=== PATIENT | female | born 1955 | race Caucasian/White ===

== ENCOUNTER → 2019-08-19 | Day surgery (SDC) | payer BC, MEDICARE ==
[~2019-08-19] MED LIST: ASPIRIN E.C. 8181 MG PO; BRILINTA90 MG PO; BROVANA15 MCG/2 M IH; CALTRATE-600 W600 MG PO; CLARITIN 1010 MG/TAB PO; COZAAR 25MG25 MG/TAB PO; DOXYCYCLINE 10100 MG PO; FOSAMAX 70MG TA70 MG PO; IMDUR 30MG30 MG/TAB PO; IPRATROPIUM BROM3 M1 IH; LEVOXYL0.125 MG PO; LIPITOR 40MG TA40 MG PO; LIPITOR20 MG PO; PREDNISONE20 MG PO; PROAIR HFA0.09 MG/AC IH; RT ADVAIR 228 DISKUS IH; RT SPIRIVA18 MCG IH; ZEBETA 5MG5 MG PO
== END ==
LOC: COL.CAR 09:29
DX: Z53.8 Procedure and treatment not carried out for other reasons (principal)

== ENCOUNTER 2019-08-20 01:29 | Observation (INO) | payer BC, MEDICARE ==
[~2019-08-20] VITALS: Ht 157.5 cm; Wt 87.7 kg
[2019-08-20] VITALS (7 sets, daily range): BP systolic 112–136; BP diastolic 44–59; PULSE 62–80; TEMP 97.4–98.2
[2019-08-20 02:06] LABS: BASO % 0.4 % (0.0-2.0); EOS # 0.1 (0.0-0.7); EOS % 2.1 % (0-4.0); GRAN # 5.3 (1.4-6.5); GRAN % 77.3 % (42.2-75.2); HEMATOCRIT 36.4 % (37.0-47.0); HEMOGLOBIN 11.2 g/dl (12.5-16.0); LYMPH # 0.9 (1.2-3.4); MEAN CELL VOLUME 95 fl (80.0-100.0); MEAN CORPUSCULAR HEMOGLOBIN 29 pg (27.0-31.0); MEAN CORPUSCULAR HGB CONC 31 g/dl (33.0-37.0); MEAN PLATELET VOLUME 9.6 fl (7.4-10.4); MONO # 0.5 (0.1-0.6); MONO % 6.8 % (1.7-9.3); PLATELET COUNT 200 K/mm3 (130-400); RED BLOOD COUNT 3.84 M/mm3 (4.10-5.30); REDCELL DISTRIBUTION WIDTH-CV 13.7 % (11.5-14.5)
[2019-08-20 02:08] LABS: INR 0.9 (0.8-3.0); PROTHROMBIN TIME 10.2 SECONDS (9.7-12.8)
[2019-08-20 02:13] LABS: ALANINE AMINOTRANSFERASE 9 U/L (9-52); ALBUMIN 3.5 gm/dL (3.5-5.0); ALKALINE PHOSPHATASE 76 U/L (50-136); ANION GAP 8 mmol/L (7-16); AST,SGOT 21 U/L (15-37); BILIRUBIN,TOTAL 0.5 mg/dL (0.0-1.0); BLOOD UREA NITROGEN 19 mg/dL (7-17); CALCIUM 8.2 mg/dL (8.4-10.2); CARBON DIOXIDE 28 mmol/L (22-30); CHLORIDE 105 mmol/L (98-107); CREATININE, serum 1.17 (0.52-1.25); GLUCOSE 100 mg/dL (74-106); POTASSIUM 3.7 mmol/L (3.4-5.0); SODIUM 140 mmol/L (137-145); TOTAL PROTEIN 6.5 gm/dL (6.4-8.2)
[2019-08-20 02:25] LABS: TROPONIN-I < 0.012 ng/mL (0.000-0.035)
--- NOTE | 2019-08-20 05:35 | NUR ---
Report received from HAROLDO Sanchez. Pt is being seen in the ED by Dr. Boswell and then will proceed to 3rd floor medical unit room 318.
[2019-08-20] MEDS ORDERED: ASPIRIN E.C. 8181 MG PO (07:54)
[2019-08-20] MEDS ORDERED: PROAIR HFA0.09 MG/AC IH (07:54)
[2019-08-20] MEDS ORDERED: FOSAMAX 70MG TA70 MG PO (07:54)
[2019-08-20] MEDS ORDERED: LIPITOR20 MG PO (07:54)
[2019-08-20] MEDS ORDERED: BRILINTA90 MG PO (07:55)
[2019-08-20] MEDS ORDERED: ZEBETA 5MG5 MG PO (07:55)
[2019-08-20] MEDS ORDERED: RT ADVAIR 228 DISKUS IH (07:56)
[2019-08-20] MEDS ORDERED: CLARITIN 1010 MG/TAB PO (07:56)
[2019-08-20] MEDS ORDERED: CALTRATE-600 W600 MG PO (07:56)
[2019-08-20] MEDS ORDERED: LEVOXYL0.125 MG PO (07:56)
[2019-08-20] MEDS ORDERED: COZAAR 25MG25 MG/TAB PO (07:57)
[2019-08-20] MEDS ORDERED: RT SPIRIVA18 MCG IH (07:57)
--- NOTE | 2019-08-20 10:05 | NUR ---
SW met with the patient to discuss discharge plan. The patient lives in [place] with her , Brijesh (ph#[phone]), son, [id number], and four grandchildren. She reports independence with ADLs and has continuous home oxygen from [facility] and a wheelchair available, if needed. The patient's PCP is Dr. Annie Luciano and she receives his medications at the [facility] in [facility]. She reports occasional difficulties affording her meds. SW discussed the OberScharrer anjana and card. The patient does not have advanced directives and she was not interested in completing them at this time. The patient plans to return home with her family upon discharge. No other additional needs at this time.
--- NOTE | 2019-08-20 19:09 | NUR ---
Pt rested today in room, no C/O pain, initial assessments completed, VS have remained stable.
--- NOTE | 2019-08-20 19:47 | NUR ---
Report received from HAROLDO Rodriguez. Pt laying in bed eating dinner and watching TV. Pt voiced no complaints. Assessment complete, no concerns at this time. Call light and personal belongings within reach.
[2019-08-21 04:15] VITALS: BP 123/56; PULSE 78; TEMP 97.7
--- NOTE | 2019-08-21 07:45 | NUR ---
Report given to HAROLDO Rodriguez. Pt had an uneventful night. Remained asleep throughout the night and voiced no complaints or concerns. No further concerns at this time.
[2019-08-21 08:24] VITALS: BP 116/37; PULSE 68; TEMP 98.2
[2019-08-21 09:02] LABS: HEMOGLOBIN 10.9 g/dl (12.5-16.0); MEAN CELL VOLUME 96 fl (80.0-100.0); MEAN CORPUSCULAR HEMOGLOBIN 29 pg (27.0-31.0); MEAN CORPUSCULAR HGB CONC 30 g/dl (33.0-37.0); PLATELET COUNT 292 K/mm3 (130-400); RED BLOOD COUNT 3.78 M/mm3 (4.10-5.30); REDCELL DISTRIBUTION WIDTH-CV 13.7 % (11.5-14.5)
--- NOTE | 2019-08-21 09:02 | NUR ---
Pt awake and sitting on side of bed upon entry, no C/O pain at this time, talkative and appropriate, shift assessments complete, left Pt call light in reach.
[2019-08-21 09:07] LABS: HEMATOCRIT 36.2 % (37.0-47.0)
[2019-08-21 09:14] LABS: CALCIUM 8.4 mg/dL (8.4-10.2); CREATININE, serum 0.83 (0.52-1.25); POTASSIUM 3.9 mmol/L (3.4-5.0)
[2019-08-21] MEDS ORDERED: DOXYCYCLINE 10100 MG PO (10:16)
[2019-08-21] MEDS ORDERED: PREDNISONE20 MG PO (10:17)
[2019-08-21 11:57] LABS: BAND 14 % (0-10); LYMPHOCYTE 5 % (20.0-51.0); NEUTROPHILS 78 % (42.0-75.2); PLATELET ESTIMATE NORMAL (NORMAL)
== END 2019-08-21 12:04 | disposition home or self-care (01) ==
LOC: COL.ER 01:29 → MEDICAL 04:34
PROVIDERS: Emergency Medicine; Nurse Practitioner Family; ADMIT Student in an Organized Health Care Education/Training Program
DX: J44.1 Chronic obstructive pulmonary disease with (acute) exacerbation (principal); I25.10 Atherosclerotic heart disease of native coronary artery without angina pectoris; E03.9 Hypothyroidism, unspecified; B34.8 Other viral infections of unspecified site; Z79.82 Long term (current) use of aspirin; Z79.52 Long term (current) use of systemic steroids; Z86.73 Personal history of transient ischemic attack (TIA), and cerebral infarction without residual deficits; Z95.5 Presence of coronary angioplasty implant and graft; Z87.891 Personal history of nicotine dependence; Z79.51 Long term (current) use of inhaled steroids
CPT/HCPCS: 99223-AI; G0378; J0696; J2060; J2930; J7030; J7512

== ENCOUNTER 2019-08-31 06:36 | Day surgery (SDC) | payer BC, MEDICARE ==
[~2019-08-31] VITALS: Ht 157.5 cm; Wt 86.4 kg
[2019-08-31] VITALS (13 sets, daily range): BP systolic 108–137; BP diastolic 48–91; PULSE 60–68; TEMP 98.5
[~2019-08-31 06:36] MED LIST changes: -BROVANA15 MCG/2 M IH; -IMDUR 30MG30 MG/TAB PO; -IPRATROPIUM BROM3 M1 IH; -LIPITOR 40MG TA40 MG PO
[2019-08-31] MEDS ORDERED: BROVANA15 MCG/2 M IH (07:17)
[2019-08-31] MEDS ORDERED: IPRATROPIUM BROM3 M1 IH (07:18)
[2019-08-31 07:30] LABS: HEMOGLOBIN 10.5 g/dl (12.5-16.0); MEAN CELL VOLUME 96 fl (80.0-100.0); MEAN CORPUSCULAR HEMOGLOBIN 29 pg (27.0-31.0); MEAN CORPUSCULAR HGB CONC 30 g/dl (33.0-37.0); MEAN PLATELET VOLUME 9.6 fl (7.4-10.4); PLATELET COUNT 262 K/mm3 (130-400); RED BLOOD COUNT 3.64 M/mm3 (4.10-5.30); REDCELL DISTRIBUTION WIDTH-CV 14.1 % (11.5-14.5)
[2019-08-31 07:36] LABS: HEMATOCRIT 34.8 % (37.0-47.0)
[2019-08-31 07:38] LABS: PROTHROMBIN TIME 11.1 SECONDS (9.7-12.8)
[2019-08-31 07:40] LABS: PARTIAL THROMBOPLASTIN TIME 25.6 SECONDS (26.0-37.0)
--- NOTE | 2019-08-31 07:51 | NUR ---
Initial visit; Patient and her thanked Back Closer for offering prayer and encouragement prior to her surgical procedure.
[2019-08-31 08:07] LABS: CALCIUM 8.3 mg/dL (8.4-10.2); CREATININE, serum 1.04 (0.52-1.25); POTASSIUM 4.4 mmol/L (3.4-5.0)
--- NOTE | 2019-08-31 09:25 | NUR ---
SEE MERGE DOCUMENTATION FOR MEDICATION ADMINISTRATION TIMES AND INTRA/POST PROCEDURE SEDATION ASSESSMENTS. RIGHT RADIAL ACCESS PLANNED; BARBEAU TEST POSITIVE TO RIGHT HAND. PT TOOK BRILINTA AND ASPIRIN 81MG THIS MORNING; ORDERED 325MG ASA HELD PER MD VILLEGAS.
--- NOTE | 2019-08-31 10:08 | NUR ---
Initial visit; Patient and her thanked Corncob Pipe Manufacturing Supervisor for offering prayer and encouragement prior to her surgical procedure.
--- NOTE | 2019-08-31 10:15 | NUR ---
Pt is back from labor utilization superintendent, with patient. pt is aao x 4, tr band with 15 ml inflation to rt wrist, green dot is lined up with puncture site laterally, and is located just proximal to puncture site. there is a bandaid at a puncture site for lidocain that is distal to TR band and there is some bruising and a small superficial hematoma at this location, when bandaid is off this site oozes blood. radial pulse palpable, cap refill is 3seconds to fingers of rt hand. pt aware of poc.
[2019-08-31] MEDS ORDERED: IMDUR 30MG30 MG/TAB PO (10:28)
[2019-08-31] MEDS ORDERED: LIPITOR 40MG TA40 MG PO (10:29)
--- NOTE | 2019-08-31 10:30 | NUR ---
BANDAID TO PUNCTURE THAT IS DISTAL TO RADIAL CATH SITE IS SATURATED AND THERE IS SOME BLEEDING, IT APPEARS THAT THIS IS VENOUS BLEEDING, A NEW DRESSING 2X2 WITH A BANDAID AND PRESSURE APPLIED TO THIS OOZING PUNCTURE SITE. CASA AND A 2ND NUTS AND BOLTS ASSEMBLER RN ARE AT BS TO EVALUATE. RADIAL ARTERY SITE IS INTACT, LOOKS GOOD, NO HEMATOMA OR BLEEDING APPRECIATED.
--- NOTE | 2019-08-31 14:00 | NUR ---
2 CC REMOVED FROM BAND AT 1320 AND AGAIN AT 1335 WITH NO PROBLEM. PT AMB TO BR AT THIS TIME, GAIT IS STEADY, PT IS DYSPNEIC AND WHEEZY WITH EXERTION. PUNCTURE SITE LOOKS GOOD.
--- NOTE | 2019-08-31 15:00 | NUR ---
1 cc removed from band at 1420, pt catrina, called Dr. Goldman for a duoneb, telephone order received, RT called. attempted to remove 5 cc from band, had to reinstill this volume as there was some bleeding from radial puncture site. hemostasis achieved. bleeding from the other puncture site has totally stopped, there is some bruising adjacent to this distal site that is unchanged.
--- NOTE | 2019-08-31 16:20 | NUR ---
1 CC OUT AT 1520, 2 CC OUT AT 1545, 1610 AND THE REMAINDER OF AIR REMOVED AT 1620 WITH NO BLEEDING OR HEMATOMA FORMATION. SITE OBSERVED FOR 25 MINUTES WITH NO PROBLEM, BANDAID PLACED ON SITE. IV DC'D WITH CATH INTACT, DRESSING APPLIED. OVER THE COURSE OF PT'S RECOVERY, WE HAVE REVIEW DC, F/U, RX INSTRUCTIONS. PT WAS GIVEN COPIES OF THESE DISCHARGE INSTRUCTIONS AND SHE DENIED HAVING ANY QUESTIONS. PT WAS ESCORTED TO EXIT VIA WHEELCHAIR, HER WAS DRIVING HER HOME.
== END 2019-08-31 17:17 | disposition home or self-care (01) ==
LOC: COL.CAR 06:36
PROVIDERS: Internal Medicine Cardiovascular Disease
DX: I25.10 Atherosclerotic heart disease of native coronary artery without angina pectoris (principal); R94.39 Abnormal result of other cardiovascular function study; J43.9 Emphysema, unspecified; E78.5 Hyperlipidemia, unspecified; I10 Essential (primary) hypertension; Z86.73 Personal history of transient ischemic attack (TIA), and cerebral infarction without residual deficits; Z99.81 Dependence on supplemental oxygen
CPT/HCPCS: J1644; J2250; J3010; Q9967

== ENCOUNTER → 2019-10-17 | Outpatient (CLI) | payer BC, MEDICARE ==
[~2019-10-17] MED LIST changes: +BROVANA15 MCG/2 M IH; +IMDUR 30MG30 MG/TAB PO; +IPRATROPIUM BROM3 M1 IH; +LIPITOR 40MG TA40 MG PO
== END ==
LOC: COL.VAS 11:53
DX: I08.1 Rheumatic disorders of both mitral and tricuspid valves (principal)

== ENCOUNTER 2019-11-17 12:50 | Inpatient (IN) | payer BC, MEDICARE ==
[~2019-11-17] VITALS: Ht 157.5 cm; Wt 89.5 kg
[2019-11-17 13:57] LABS: BASO # 0.1 (0.0-0.2); BASO % 0.9 % (0.0-2.0); EOS # 0.1 (0.0-0.7); GRAN # 6.5 (1.4-6.5); GRAN % 84.4 % (42.2-75.2); HEMATOCRIT 37.8 % (37.0-47.0); HEMOGLOBIN 11.8 g/dl (12.5-16.0); LYMPH # 0.6 (1.2-3.4); LYMPH % 7.2 % (20.0-51.0); MEAN CELL VOLUME 92 fl (80.0-100.0); MEAN CORPUSCULAR HEMOGLOBIN 29 pg (27.0-31.0); MEAN CORPUSCULAR HGB CONC 31 g/dl (33.0-37.0); MEAN PLATELET VOLUME 9.8 fl (7.4-10.4); MONO # 0.5 (0.1-0.6); MONO % 6.1 % (1.7-9.3); PLATELET COUNT 253 K/mm3 (130-400); RED BLOOD COUNT 4.09 M/mm3 (4.10-5.30); REDCELL DISTRIBUTION WIDTH-CV 13.2 % (11.5-14.5)
[2019-11-17 14:00] LABS: ALANINE AMINOTRANSFERASE 7 U/L (9-52); ALBUMIN 4.1 gm/dL (3.5-5.0); ALKALINE PHOSPHATASE 90 U/L (50-136); ANION GAP 8 mmol/L (7-16); AST,SGOT 16 U/L (15-37); BILIRUBIN,TOTAL 0.9 mg/dL (0.0-1.0); BLOOD UREA NITROGEN 15 mg/dL (7-17); CALCIUM 8.6 mg/dL (8.4-10.2); CARBON DIOXIDE 31 mmol/L (22-30); CHLORIDE 98 mmol/L (98-107); GLUCOSE 93 mg/dL (74-106); POTASSIUM 3.9 mmol/L (3.4-5.0); SODIUM 137 mmol/L (137-145); TOTAL PROTEIN 7.1 gm/dL (6.4-8.2)
[2019-11-17 14:13] LABS: TROPONIN-I < 0.012 ng/mL (0.000-0.035)
[2019-11-17] MEDS ORDERED: BRILINTA90 MG PO (15:49)
[2019-11-17] MEDS ORDERED: ERGOCALCIFER50000 IU PO (15:52)
--- NOTE | 2019-11-17 20:00 | NUR ---
Patient came in via wheelchair from ER. She is alert and oriented. Independent. With O2 at 4lpm via NC. With INT on right forearm. Noted to have +1 edema on BLE. Patient on tele. Call light within reach.
[2019-11-17 20:32] VITALS: BP 121/54; PULSE 81; TEMP 98.9
--- NOTE | 2019-11-17 21:10 | NUR ---
Nasal swab done for respiratory virus panel. Patient states she did it already in ER but this nurse explained to her that it was for a different test which is the influenza and the test to be done right now is respiratory virus panel. Patient shows understanding and agreed for nasal swab.
[2019-11-18 00:12] VITALS: BP 107/43; PULSE 93; TEMP 97.4
[2019-11-18 04:30] VITALS: BP 130/57; PULSE 89; TEMP 98.3
--- NOTE | 2019-11-18 04:30 | NUR ---
Informed patient about the result of respiratory virus panel and the droplet precaution we have to initiate. Patient denies pain. Patient was able to walk inside the room and going to bathroom independently. Sputum sample collected and sent to lab.
--- NOTE | 2019-11-18 07:06 | NUR ---
Endorsed patient to Billie. Denies any pain. Still on O2 at 4lpm via NC.
[2019-11-18 07:19] VITALS: BP 125/50; PULSE 73; TEMP 98.5
[2019-11-18 07:43] LABS: HEMOGLOBIN 11.4 g/dl (12.5-16.0); MEAN CELL VOLUME 93 fl (80.0-100.0); MEAN CORPUSCULAR HEMOGLOBIN 29 pg (27.0-31.0); MEAN CORPUSCULAR HGB CONC 32 g/dl (33.0-37.0); MEAN PLATELET VOLUME 10.1 fl (7.4-10.4); PLATELET COUNT 262 K/mm3 (130-400); RED BLOOD COUNT 3.88 M/mm3 (4.10-5.30); REDCELL DISTRIBUTION WIDTH-CV 13.2 % (11.5-14.5)
[2019-11-18 07:44] LABS: HEMATOCRIT 35.9 % (37.0-47.0)
[2019-11-18 07:51] LABS: CALCIUM 8.5 mg/dL (8.4-10.2); CREATININE, serum 1.09 (0.52-1.25); POTASSIUM 3.8 mmol/L (3.4-5.0)
[2019-11-18 08:45] LABS: BAND 5 % (0-10); BASOPHIL 1 % (0-2); LYMPHOCYTE 5 % (20.0-51.0); METAMYELOCYTE 1 % (0-0); NEUTROPHILS 87 % (42.0-75.2); PLATELET ESTIMATE NORMAL (NORMAL)
--- NOTE | 2019-11-18 10:40 | NUR ---
Pt requested to take a shower so I wrapped her IV and removed her leads. I also gave her her medications and performed her assessment. Pt was actively coughing when I was in the room. Pt denied any needs other than the IV being wrapped. I then rehooked the leads when she was done in the shower.
[2019-11-18] MEDS ORDERED: ZITHROMAX 250M250 MG PO (11:40)
[2019-11-18] MEDS ORDERED: PREDNISONE20 MG PO (11:42)
[2019-11-18 12:00] VITALS: BP 125/55; PULSE 83; TEMP 97.7
--- NOTE | 2019-11-18 13:58 | NUR ---
WENT OVER DISCHARGE INSTRUCTIONS WITH PT AND PT'S SON. PT ACKNOWLEGED INFORMATION GIVEN AND SAID SHE UNDERSTANDED. IV WAS REMOVED AND PT WAS WHEELED TO THE FRONT DOOR AND TRANSFERRED INTO HER SON'S CAR WITH HER SON AND THE REST OF HER BELONGINGS.
== END 2019-11-18 13:56 | disposition home or self-care (01) | DRG 191 ==
LOC: COL.ER 12:50 → MEDICAL 15:16
PROVIDERS: Emergency Medicine; ADMIT Student in an Organized Health Care Education/Training Program
DX: J44.1 Chronic obstructive pulmonary disease with (acute) exacerbation (principal); J96.10 Chronic respiratory failure, unspecified whether with hypoxia or hypercapnia; R60.0 Localized edema; Z99.81 Dependence on supplemental oxygen; I25.10 Atherosclerotic heart disease of native coronary artery without angina pectoris; I10 Essential (primary) hypertension; E03.9 Hypothyroidism, unspecified; B97.89 Other viral agents as the cause of diseases classified elsewhere
CPT/HCPCS: 99239; J1940; J2920; J7512

== ENCOUNTER 2020-07-02 09:11 | Outpatient (RCR) | payer BC, MEDICARE ==
[~2020-07-02 09:11] MED LIST changes: +ERGOCALCIFER50000 IU PO; +ZITHROMAX 250M250 MG PO
== END 2020-09-30 | disposition home or self-care (01) ==
LOC: WSST
DX: R13.13 Dysphagia, pharyngeal phase (principal); R13.12 Dysphagia, oropharyngeal phase

== ENCOUNTER → 2020-07-09 | Outpatient (CLI) | payer BC, MEDICARE | LOC: COL.RAD 08:06 | DX: R13.12 Dysphagia, oropharyngeal phase (principal) ==

== ENCOUNTER 2020-10-10 11:22 | Day surgery (SDC) | payer BC, MEDICARE ==
[2020-10-10] VITALS (208 sets, daily range): BP systolic 123–135; BP diastolic 52–102; PULSE 62–82; TEMP 97.8–98; O2SAT 77–100
[~2020-10-10] VITALS: Ht 157.5 cm; Wt 87.8 kg
[2020-10-10 12:21] LABS: PROTHROMBIN TIME 11.3 SECONDS (9.7-12.8)
[2020-10-10 12:22] LABS: HEMOGLOBIN 11.3 g/dl (12.5-16.0); MEAN CELL VOLUME 93 fl (80.0-100.0); MEAN CORPUSCULAR HEMOGLOBIN 29 pg (27.0-31.0); MEAN CORPUSCULAR HGB CONC 31 g/dl (33.0-37.0); MEAN PLATELET VOLUME 9.9 fl (7.4-10.4); PLATELET COUNT 319 K/mm3 (130-400); RED BLOOD COUNT 3.93 M/mm3 (4.10-5.30)
[2020-10-10 12:28] LABS: HEMATOCRIT 36.5 % (37.0-47.0)
[2020-10-10 12:29] LABS: CALCIUM 8.7 mg/dL (8.4-10.2); CREATININE, serum 0.91 (0.52-1.25); POTASSIUM 4.4 mmol/L (3.4-5.0)
[2020-10-10] MEDS ORDERED: LIPITOR 40MG TA40 MG PO (12:47)
[2020-10-10] MEDS ORDERED: LASIX 20MG TABL20 MG PO (12:53)
[2020-10-10] MEDS ORDERED: RT ADVAIR 228 DISKUS IH (12:53)
[2020-10-10] MEDS ORDERED: INCRUSE EL62.5 MCG/A IH (12:54)
--- NOTE | 2020-10-10 13:32 | NUR ---
SEE MERGE FOR ALL MEDICATION ADMINISTRATION TIMES, INTRA AND POST SEDATION ASSESSMENT
--- NOTE | 2020-10-10 15:00 | NUR ---
PATIENT ARRIVES TO ICU FROM EP TECH. RIGHT WRIST TR BAND IN PLACE. RIGHT WRIST SITE LOOKS CLEAN AND DRY, NO HEMATOMA. RIGHT AC HAS HEMATOMA, SOFT AND BLOOD PRESSURE CUFF IN PLACE AT 90 MMHG UNTIL 1507, PER HAROLDO AGARWAL. WILL CONTINUE TO MONITOR.
--- NOTE | 2020-10-10 16:00 | NUR ---
DR. SUAZO CALLED WITH CONCERN WITH RIGHT ARM AC HEMATOMA. HE IS GIVEN UPDATE AND TOLD ABOUT NEW PETECHIAE ON RIGHT ARM. ULTRASOUND OF RIGHT ARM ORDER RECEIVED TO CHECK FOR POSSIBLE PSEUDOANEURYSM. ULTRASOUND CALLED WITH THIS ORDER.
--- NOTE | 2020-10-10 19:15 | NUR ---
REPORT GIVEN TO HAROLDO ABREU . TR BAND EMPTY BUT IN PLACE. RIGHT AC HEMATOMA REMAINS SOFT AND OUTLINED. CARE TURNED OVER AT THIS TIME.
--- NOTE | 2020-10-10 19:30 | NUR ---
Hematoma to right antecubital area stable from earlier per pt and HAROLDO Velásquez. Site is tender, soft and swollen. Breathing treatment requested and administered by RT No complaints from pt. Lights off as requested by pt for rest Call light in reach Right radial precuation education provided
[2020-10-11] VITALS (407 sets, daily range): BP systolic 111–132; BP diastolic 47–69; PULSE 62–69; TEMP 97–98.7; O2SAT 73–100
[2020-10-11 05:38] LABS: BASO % 0.4 % (0.0-2.0); EOS # 0.3 (0.0-0.7); EOS % 3.3 % (0-4.0); GRAN # 7.1 (1.4-6.5); GRAN % 78.7 % (42.2-75.2); HEMOGLOBIN 10.7 g/dl (12.5-16.0); LYMPH % 11.5 % (20.0-51.0); MEAN CELL VOLUME 93 fl (80.0-100.0); MEAN CORPUSCULAR HEMOGLOBIN 29 pg (27.0-31.0); MEAN CORPUSCULAR HGB CONC 31 g/dl (33.0-37.0); MEAN PLATELET VOLUME 9.9 fl (7.4-10.4); MONO # 0.5 (0.1-0.6); MONO % 5.8 % (1.7-9.3); PLATELET COUNT 288 K/mm3 (130-400); RED BLOOD COUNT 3.67 M/mm3 (4.10-5.30); REDCELL DISTRIBUTION WIDTH-CV 13.1 % (11.5-14.5)
[2020-10-11 05:41] LABS: HEMATOCRIT 34.2 % (37.0-47.0)
[2020-10-11 05:56] LABS: CALCIUM 8.3 mg/dL (8.4-10.2); CREATININE, serum 0.84 (0.52-1.25); POTASSIUM 3.9 mmol/L (3.4-5.0)
--- NOTE | 2020-10-11 09:03 | NUR ---
CAS met with the patient to discuss discharge plan. The patient lives in [place] with her , Brijesh (ph#[phone]). She reports independence with ADLs and has a rolaider and continuous home oxygen from [employer]. Her PCP is Dr. Annie Luciano and she receives her medications from [facility] in [facility]. The patient does not have a DPOA-HC and she was not interested in completing a DPOA-HC at this time. The patient plans to return home with her upon discharge today. No additional needs at this time.
[2020-10-11] MEDS ORDERED: LIPITOR 80MG80 MG PO (09:42)
--- NOTE | 2020-10-11 10:40 | NUR ---
DISCHARGE INSTRUCTIONS REVIEWED WITH PATIENT. IV REMOVED AND BANDAID APPLIED TO RIGHT WRIST. PATIENT AMBULATES OUT TO EMERGENCY ENTRANCE WITH NO ISSUE.
== END 2020-10-11 10:45 | disposition home or self-care (01) ==
LOC: COL.CAR 11:22 → ICU 15:22 → COL.CAR 10-11 10:45
PROVIDERS: Internal Medicine Cardiovascular Disease
DX: I25.110 Atherosclerotic heart disease of native coronary artery with unstable angina pectoris (principal); R94.39 Abnormal result of other cardiovascular function study; Z95.5 Presence of coronary angioplasty implant and graft; I25.5 Ischemic cardiomyopathy; J44.9 Chronic obstructive pulmonary disease, unspecified; E78.5 Hyperlipidemia, unspecified; E03.9 Hypothyroidism, unspecified; I11.0 Hypertensive heart disease with heart failure; I50.9 Heart failure, unspecified; G47.33 Obstructive sleep apnea (adult) (pediatric); Z86.73 Personal history of transient ischemic attack (TIA), and cerebral infarction without residual deficits
CPT/HCPCS: OP; J0583; J1644; J2250; J3010; Q9967

== ENCOUNTER 2020-11-07 09:00 | Outpatient (RCR) | payer OTHER, MEDICARE ==
[~2020-11-07 09:00] MED LIST changes: +INCRUSE EL62.5 MCG/A IH; +LASIX 20MG TABL20 MG PO; +LIPITOR 80MG80 MG PO
== END 2021-01-02 14:58 | disposition home or self-care (01) ==
LOC: COL.CR 09:00
DX: Z48.812 Encounter for surgical aftercare following surgery on the circulatory system (principal); Z98.61 Coronary angioplasty status

== ENCOUNTER → 2021-04-24 | Outpatient (CLI) | payer OTHER, MEDICARE ==
[~2021-04-24] MED LIST changes: +K-DUR 10 MEQ T10 MEQ PO; +NITRO-DUR0.4 MG/PAT TD; +OMNICEF 300MG300 MG PO; +THEO-24400 MG PO; +ZOFRAN ODT4 MG PO
== END ==
LOC: COL.VAS 12:53
DX: I34.0 Nonrheumatic mitral (valve) insufficiency (principal); R60.0 Localized edema

== ENCOUNTER 2021-09-08 12:54 | Emergency (ER) | payer OTHER, MEDICARE ==
[~2021-09-08] VITALS: Ht 157.5 cm; Wt 88.2 kg
[~2021-09-08 12:54] MED LIST changes: -K-DUR 10 MEQ T10 MEQ PO; -NITRO-DUR0.4 MG/PAT TD; -OMNICEF 300MG300 MG PO; -THEO-24400 MG PO; -ZOFRAN ODT4 MG PO
[2021-09-08 13:04] VITALS: TEMP 98.2
[2021-09-08] MEDS ORDERED: THEO-24400 MG PO (13:33)
[2021-09-08] MEDS ORDERED: NITRO-DUR0.4 MG/PAT TD (13:33)
[2021-09-08 13:53] LABS: BASO # 0.1 K/mm3 (0.0-0.2); BASO % 0.5 % (0.0-2.0); EOS # 0.2 K/mm3 (0.0-0.7); EOS % 1.5 % (0-4.0); GRAN # 10.6 K/mm3 (1.4-6.5); GRAN % 81.8 % (42.2-75.2); HEMATOCRIT 38.3 % (37.0-47.0); HEMOGLOBIN 12.2 g/dl (12.5-16.0); LYMPH # 1.4 K/mm3 (1.2-3.4); LYMPH % 10.7 % (20.0-51.0); MEAN CELL VOLUME 88 fl (80.0-100.0); MEAN CORPUSCULAR HEMOGLOBIN 28 pg (27.0-31.0); MEAN CORPUSCULAR HGB CONC 32 g/dl (33.0-37.0); MEAN PLATELET VOLUME 9.8 fl (7.4-10.4); MONO # 0.7 K/mm3 (0.1-0.6); MONO % 5.2 % (1.7-9.3); PLATELET COUNT 370 K/mm3 (130-400); RED BLOOD COUNT 4.35 M/mm3 (4.10-5.30); REDCELL DISTRIBUTION WIDTH-CV 13.6 % (11.5-14.5)
[2021-09-08 14:05] LABS: ALBUMIN 3.5 gm/dL (3.4-4.8); ALKALINE PHOSPHATASE 104 U/L (40-150); ANION GAP 14 mmol/L (7-16); AST,SGOT 6 U/L (5-34); BILIRUBIN,TOTAL 0.6 mg/dL (0.2-1.2); BLOOD UREA NITROGEN 6 mg/dL (10-20); CALCIUM 9.5 mg/dL (8.4-10.2); CARBON DIOXIDE 30 mmol/L (23-31); CHLORIDE 97 mmol/L (98-107); CREATININE, serum 1.19 mg/dL (0.57-1.11); GLUCOSE 107 mg/dL (70-99); SODIUM 141 mmol/L (136-145)
[2021-09-08 14:06] LABS: ALANINE AMINOTRANSFERASE < 6 U/L (0-55)
[2021-09-08 14:07] LABS: POTASSIUM 2.9 mmol/L (3.5-4.5)
[2021-09-08 14:14] LABS: TROPONIN-I < 0.010 ng/mL (0.00-0.033)
[2021-09-08] MEDS ORDERED: K-DUR 10 MEQ T10 MEQ PO (16:15)
[2021-09-08] MEDS ORDERED: ZOFRAN ODT4 MG PO (16:17)
[2021-09-08 16:29] LABS: COLLECTION METHOD CLEAN CATCH
[2021-09-08 16:45] LABS: MUCOUS Present (NOT PRESENT); PH 7 (5-8); URINE APPEARANCE Hazy (CLEAR/HAZY); URINE BACTERIA Occasional (NONE SEEN); URINE BILIRUBIN Negative (NEGATIVE); URINE BLOOD 1+ (NEGATIVE); URINE COLOR Yellow (YELLOW); URINE GLUCOSE Negative (NEGATIVE); URINE KETONE Negative (NEGATIVE); URINE LEUKOCYTE ESTERASE 3+ (NEGATIVE); URINE NITRATE Negative (NEGATIVE); URINE PROTEIN(semi-quant) Negative (NEGATIVE); URINE UROBILINOGEN Negative (NEGATIVE)
[2021-09-08] MEDS ORDERED: OMNICEF 300MG300 MG PO (17:37)
[2021-09-08 17:48] VITALS: BP 123/97; PULSE 68
== END 2021-09-08 17:53 | disposition home or self-care (01) ==
LOC: COL.ER 12:54
PROVIDERS: Physician Assistant
DX: N39.0 Urinary tract infection, site not specified (principal); J44.9 Chronic obstructive pulmonary disease, unspecified; I50.9 Heart failure, unspecified; I25.2 Old myocardial infarction; Z20.822 Contact with and (suspected) exposure to COVID-19; Z79.82 Long term (current) use of aspirin; Z79.899 Other long term (current) drug therapy
CPT/HCPCS: J2405; J3480

== ENCOUNTER 2021-12-24 12:11 | Emergency (ER) | payer OTHER, MEDICARE ==
[~2021-12-24] VITALS: Ht 157.5 cm; Wt 88.6 kg
[~2021-12-24 12:11] MED LIST changes: +K-DUR 10 MEQ T10 MEQ PO; +NITRO-DUR0.4 MG/PAT TD; +OMNICEF 300MG300 MG PO; +THEO-24400 MG PO; +ZOFRAN ODT4 MG PO
[2021-12-24 13:43] LABS: BASO % 0.2 % (0.0-2.0); EOS % 0.1 % (0.0-4.0); GRAN # 8.2 K/mm3 (1.4-6.5); GRAN % 87.6 % (42.2-75.2); HEMATOCRIT 36.7 % (37.0-47.0); LYMPH # 0.6 K/mm3 (1.2-3.4); LYMPH % 6.5 % (20.0-51.0); MEAN CELL VOLUME 87 fl (80.0-100.0); MEAN CORPUSCULAR HEMOGLOBIN 28 pg (27-31); MEAN CORPUSCULAR HGB CONC 33 g/dl (33.0-37.0); MEAN PLATELET VOLUME 9.4 fl (7.4-10.4); MONO # 0.5 K/mm3 (0.1-0.6); MONO % 5.3 % (1.7-9.3); PLATELET COUNT 315 K/mm3 (130-400); RED BLOOD COUNT 4.24 M/mm3 (4.10-5.30); REDCELL DISTRIBUTION WIDTH-CV 14.5 % (11.5-14.5)
[2021-12-24 13:58] LABS: ALBUMIN 3.3 gm/dL (3.4-4.8); ALKALINE PHOSPHATASE 90 U/L (40-150); ANION GAP 13 mmol/L (7-16); AST,SGOT 9 U/L (5-34); BILIRUBIN,TOTAL 0.6 mg/dL (0.2-1.2); BLOOD UREA NITROGEN 12 mg/dL (10-20); CALCIUM 8.2 mg/dL (8.4-10.2); CARBON DIOXIDE 27 mmol/L (23-31); CHLORIDE 97 mmol/L (98-107); CREATININE, serum 1.19 mg/dL (0.57-1.11); GLUCOSE 111 mg/dL (70-99); SODIUM 137 mmol/L (136-145); TOTAL PROTEIN 6.5 gm/dL (6.2-8.1)
[2021-12-24 14:03] LABS: ALANINE AMINOTRANSFERASE < 6 U/L (0-55); POTASSIUM 2.8 mmol/L (3.5-4.5)
[2021-12-24] MEDS ORDERED: ZOFRAN ODT4 MG PO (15:32)
[2021-12-24] MEDS ORDERED: KLOR-CON20 MEQ PO (15:33)
[2021-12-24 16:43] VITALS: BP 122/65; PULSE 85; TEMP 98.3
== END 2021-12-24 16:43 | disposition home or self-care (01) ==
LOC: COL.ER 12:11
PROVIDERS: Personal Emergency Response Attendant
DX: R11.2 Nausea with vomiting, unspecified (principal); Z87.891 Personal history of nicotine dependence
CPT/HCPCS: C9113; J1790

== ENCOUNTER 2021-12-30 17:46 | Inpatient (IN) | payer OTHER, MEDICARE ==
[~2021-12-30] VITALS: Ht 162.6 cm; Wt 94.1 kg
[2021-12-30] VITALS (124 sets, daily range): BP systolic 100; BP diastolic 86; PULSE 120; TEMP 98; O2SAT 88–100
[~2021-12-30 17:46] MED LIST changes: +KLOR-CON20 MEQ PO
[2021-12-30 18:38] LABS: BASO % 0.2 % (0.0-2.0); EOS % 0.2 % (0.0-4.0); GRAN # 11.6 K/mm3 (1.4-6.5); GRAN % 88.5 % (42.2-75.2); HEMATOCRIT 39.5 % (37.0-47.0); HEMOGLOBIN 13.1 g/dl (12.5-16.0); LYMPH # 0.8 K/mm3 (1.2-3.4); LYMPH % 6.3 % (20.0-51.0); MEAN CELL VOLUME 84 fl (80.0-100.0); MEAN CORPUSCULAR HEMOGLOBIN 28 pg (27-31); MEAN CORPUSCULAR HGB CONC 33 g/dl (33.0-37.0); MEAN PLATELET VOLUME 11.5 fl (7.4-10.4); MONO # 0.6 K/mm3 (0.1-0.6); MONO % 4.2 % (1.7-9.3); PLATELET COUNT 296 K/mm3 (130-400); RED BLOOD COUNT 4.68 M/mm3 (4.10-5.30); REDCELL DISTRIBUTION WIDTH-CV 14.5 % (11.5-14.5)
[2021-12-30 18:59] LABS: BILIRUBIN,TOTAL 1.3 mg/dL (0.2-1.2); C-REACTIVE PROTEIN 2.5 mg/dL (0.00-0.50); CALCIUM 8.2 mg/dL (8.4-10.2); CREATININE, serum 3.75 mg/dL (0.57-1.11); TOTAL PROTEIN 6.7 gm/dL (6.2-8.1)
[2021-12-30 19:05] LABS: POTASSIUM 2.4 mmol/L (3.5-4.5)
[2021-12-30 19:06] LABS: TROPONIN-I 0.034 ng/mL (0.00-0.033)
--- NOTE | 2021-12-30 21:11 | NUR ---
RECEIVED REPORT FROM HAROLDO MEDINA IN ER. AWAITING ARRIVAL OF PT TO ICU 1.
--- NOTE | 2021-12-30 21:30 | NUR ---
PT ARRIVES TO ICU 1 VIA STRETCHER. ASSISTED TO ICU BED. PLACED ON BEDSIDE CONTINUOUS MONITOR. NOTED HR IN AFIB. PT ON 5L OM. CALL LIGHT WITHIN REACH.
[2021-12-30] MEDS ORDERED: RT ADVAIR 528 DISKUS IH (23:56)
[2021-12-30] MEDS ORDERED: ZOFRAN ODT4 MG PO (23:56)
[2021-12-30] MEDS ORDERED: SINGULAIR 110 MG/TAB PO (23:56)
[2021-12-30] MEDS ORDERED: KLOR-CON20 MEQ PO (23:58)
[2021-12-31] VITALS (483 sets, daily range): BP systolic 93–108; BP diastolic 46–84; PULSE 66–103; TEMP 97.3–98.2; O2SAT 69–100
[2021-12-31] MEDS ORDERED: ZEBETA10 MG PO
[2021-12-31 02:53] LABS: CREATININE, serum 2.87 mg/dL (0.57-1.11)
[2021-12-31 02:55] LABS: POTASSIUM 2.7 mmol/L (3.5-4.5)
[2021-12-31 06:30] LABS: COLLECTION METHOD CLEAN CATCH
[2021-12-31 06:42] LABS: MUCOUS Present (NOT PRESENT); PH 5 (5-8); URINE APPEARANCE Hazy (CLEAR/HAZY); URINE BACTERIA Rare /hpf (NONE SEEN); URINE BILIRUBIN Negative (NEGATIVE); URINE BLOOD 1+ (NEGATIVE); URINE COLOR Yellow (YELLOW); URINE GLUCOSE Negative (NEGATIVE); URINE KETONE Negative (NEGATIVE); URINE LEUKOCYTE ESTERASE Trace (NEGATIVE); URINE NITRATE Negative (NEGATIVE); URINE PROTEIN(semi-quant) 1+ (NEGATIVE); URINE RBC 0-2 /hpf (0-2); URINE UROBILINOGEN Negative (NEGATIVE)
[2021-12-31 06:57] LABS: MEAN CELL VOLUME 88 fl (80.0-100.0); MEAN CORPUSCULAR HGB CONC 32 g/dl (33.0-37.0); MEAN PLATELET VOLUME 11.2 fl (7.4-10.4); PLATELET COUNT 251 K/mm3 (130-400); RED BLOOD COUNT 3.86 M/mm3 (4.10-5.30); REDCELL DISTRIBUTION WIDTH-CV 14.6 % (11.5-14.5)
[2021-12-31 07:08] LABS: CALCIUM 6.8 mg/dL (8.4-10.2); CREATININE, serum 2.76 mg/dL (0.57-1.11); POTASSIUM 3.1 mmol/L (3.5-4.5)
[2021-12-31 07:18] LABS: HEMATOCRIT 33.9 % (37.0-47.0); HEMOGLOBIN 10.7 g/dl (12.5-16.0); MEAN CORPUSCULAR HEMOGLOBIN 28 pg (27-31)
--- NOTE | 2021-12-31 08:48 | NUR ---
REPORT RECEIVED FROM HAROLDO HOOVER. PT WEARS BIPAP AT 40% WITH SPO2 AT 100%. 20G PIV TO LEFT FOREARM; SEE GTT FLOWSHEET FOR INFUISIONS AND RATES. VOIDS USING BEDSIDE COMMODE. PT CURRENTLY NPO FOR POSSIBLE DANIEL/ECHO THIS AM. APPEARS TO BE RESTING COMFORTABLY AT THIS TIME.
--- NOTE | 2021-12-31 08:52 | NUR ---
HEPARIN SUPRATHERAPEUTIC WITHA HEPXA OF 1.28. HEPARIN GTT PLACED ON HOLD AT THIS TIME AND WILL REMAIN ON HOLD FOR 2 HOURS. NEXT HEPXA AT 1030.
[2021-12-31 08:59] LABS: BAND 7 % (0-10); LYMPHOCYTE 1 % (20.0-51.0); NEUTROPHILS 92 % (42.0-75.2)
[2021-12-31 09:02] LABS: PLATELET ESTIMATE NORMAL (NORMAL)
--- NOTE | 2021-12-31 12:37 | NUR ---
Due to patient being covid+, phone call made to her Brijesh ([phone]). Patient and her both lives at home in [place]. According to her , she is independent with her ADL's and utilizes a walker to assist with ambulation. Patient is on 4L of NC oxygen at home which is managed throguh [employer]. Brijesh is unsure of who the patient's PCP is due to recently changing physicians and he is unsure of who she is established with now. Patient utilizes [facility] pharmacy for medications with no cost difficulty. Brijesh is unsure if they have a DPOA-HC established. All questions answered.
--- NOTE | 2021-12-31 16:31 | NUR ---
PT BEING TRANSFERED TO MEDICAL FLOOR. REPORT GIVEN TO HAROLDO YUN. PT WILL BE GOING TO ROOM 305. PT'S HAS BEEN UPDATED ON PT'S STATUS AND ROOM CHANGE.
--- NOTE | 2021-12-31 17:09 | NUR ---
PT TAKEN TO ROOM 305 WITH ALL BELONGINGS. SPOKE WITH STAFF ON MEDICAL FLOOR AND LET THEM KNOW THAT PT HAD ARRIVED.
--- NOTE | 2021-12-31 17:52 | NUR ---
PT UP TO ROOM FROM ICU. PT ON 4LIT OF O2 VIA NC.PT STATES THAT SHE IS NOT SOB SITTING ONLY WHEN SHE GETS UP AND GOES TO THE BATHROOM AND MOVE AROUND. PT STATES THAT SHE IS NOT HAVING ANY PAIN. PT STATES NO NEEDS AT THIS TIME. CALL LIGHT IS WITHIN REACH.
--- NOTE | 2021-12-31 18:07 | NUR ---
LUNG DR IS YONIS HARRISON. PCP IS NGUYEN HOLT: BIBIANA JEROME. HEART DR IS DR. SUAZO. PT WOULD JUST LIKE TO HAVE DRS NOTED IN CHART.
--- NOTE | 2021-12-31 18:32 | NUR ---
PT UP TO BATHROOM. 1 EPISODE OF DIARRHEA WAS NOTED. ASSITED PT BACK TO BED. PT ON 4LIT OF O2 VIA NC WHICH IS HER BASELINE. PT STATES THAT SHE WOULD LIKE TO HAVE A SHOWER LATER. WILL PASS IT ALONG TO ONCOMING SHIFT. PT STATES THAT SHE IS NOT HAVING ANY PAIN AT THIS TIME. NO OTHER NEEDS WERE VOICED. CALL LIGHT IS WITHIN REACH.
--- NOTE | 2021-12-31 21:24 | NUR ---
Patient assessed around 1999. Alert and oriented x 4, and able to make needs known. On oxygen at 4 L/min via NC. Reports SOB and dyspnea with exertion. LS expiratory wheezing in upper lobes, diminished in lower. HRI. Telemetry: a-fib. BSAx4. Continues on Heparin drip per orders. IV fluids running per orders to PICC to RUE. Voices no questions, needs, or concerns at this time. In bed with call light within reach.
[2022-01-01 04:58] VITALS: BP 106/56; PULSE 78; TEMP 98.1
--- NOTE | 2022-01-01 05:34 | NUR ---
Patient has denied pain and discomfort this shift. Continues on IV fluids, and Heparin drip per orders. HepXa at goal rate x 2, recheck this morning obtained and given to r and d lab technician. Patient has been wearing CPAP this shift. Voices no questions, needs, or concerns at this time. In bed with call light within reach.
[2022-01-01 06:35] LABS: MEAN CELL VOLUME 89 fl (80.0-100.0); MEAN CORPUSCULAR HGB CONC 32 g/dl (33.0-37.0); MEAN PLATELET VOLUME 11.6 fl (7.4-10.4); PLATELET COUNT 239 K/mm3 (130-400); RED BLOOD COUNT 3.27 M/mm3 (4.10-5.30); REDCELL DISTRIBUTION WIDTH-CV 14.6 % (11.5-14.5)
[2022-01-01 06:38] LABS: HEMOGLOBIN 9.2 g/dl (12.5-16.0); MEAN CORPUSCULAR HEMOGLOBIN 28 pg (27-31)
[2022-01-01 06:43] LABS: CALCIUM 6.7 mg/dL (8.4-10.2); CREATININE, serum 1.75 mg/dL (0.57-1.11); MAGNESIUM 1.9 mg/dL (1.6-2.6)
[2022-01-01 06:48] LABS: POTASSIUM 2.9 mmol/L (3.5-4.5)
[2022-01-01 06:52] LABS: TSH w REFLEX 0.005 uIU/mL (0.350-4.940)
--- NOTE | 2022-01-01 06:52 | NUR ---
Patient Potassium 2.9. Orders placed for replacement per protocol. HepXa came back at goal. Order placed to recheck at 01/02 per protocol.
[2022-01-01 07:27] VITALS: BP 104/58; PULSE 70; TEMP 98
[2022-01-01 11:30] VITALS: BP 135/55; PULSE 49; TEMP 97.8
--- NOTE | 2022-01-01 13:37 | NUR ---
Documentation Clerk contacted patient to follow up on discharge plan. SW reviewed PT recommendation for Home Health and patient states she has been trying to get [facility] set up, however has not been able to. Patient states she was supposed to start private duty services but no one ever showed up. CAS faxed referral to [facility]. Discharge Plan: Home with [facility]
--- NOTE | 2022-01-01 13:38 | NUR ---
NO CHANGE FROM BASELINE FOR PATIENT THIS SHIFT. PATIENT STILL REQUIRES OXYGEN VIA NC AT 4L. MODERATE SHORTNESS OF BREATH AND WHEEZING WITH LIGHT ACTIVITY. PATIENT ABLE TO AMBULATE ON OWN. DUE TO SOA, BEDSIDE COMMODE PLACED IN ROOM, PATIENT ABLE TO TRANSFER INDEPENDENTLY. HEP DRIP CONT AT 13/HR, AWAITING LAB RESULTS. DENIES COVID SYMPTOMS AT THIS TIME. NO PAIN. A&O X4. FEEDS SELF, APPETITE IS GOOD. CONTINENT.
[2022-01-01 15:57] VITALS: BP 116/44; PULSE 72; TEMP 97.7
[2022-01-01 19:56] VITALS: BP 123/56; PULSE 77; TEMP 98.4
--- NOTE | 2022-01-01 20:50 | NUR ---
Patient assessed around 194. Alert and oriented x 4, and able to make needs known. Denies pain and discomfort. PICC to RUE. IV fluids running per orders, IV Potassium replacement started per orders, will recheck around 2344 per protocol. HRR. Telemetry in place. LS CTA in upper lobes, diminished in lower. Wearing CPAP with 4 L bleed in oxygen. Reports SOB and dyspnea with exertion. Voices no questions, needs, or concerns at this time. In bed with call light within reach.
[2022-01-01 23:36] VITALS: BP 126/53; PULSE 72; TEMP 97.8
[2022-01-02 04:04] VITALS: BP 109/65; PULSE 82; TEMP 97.7
--- NOTE | 2022-01-02 05:48 | NUR ---
Patient has been wearing CPAP this shift. Complained of nausea once this shift and given PRN Zofran as requested. No further complaints this shift. Reports she continues to get SOB and dyspnea with exertion. Voices no questions, needs, or concerns at this time. In bed with call light within reach.
[2022-01-02 07:09] LABS: POTASSIUM 3.5 mmol/L (3.5-4.5)
[2022-01-02 08:14] VITALS: BP 129/58; PULSE 63; TEMP 98
[2022-01-02 09:13] LABS: CALCIUM 6.9 mg/dL (8.4-10.2); CREATININE, serum 1.29 mg/dL (0.57-1.11)
--- NOTE | 2022-01-02 09:32 | NUR ---
Scheduled medication given. Shift assessment performed. Patient currenlty requiring 4L of O2 via nasal cannula. Dyspnea at rest noted. Patient very anxious and breathing through mouth. Patient instructed to take deep breaths in through her nose and out through her mouth to help with her SOB. Patient able to follow directions and breathing became slower and deeper. Patient denies any pain, discomfort, or further needs at this time. VSS. Patient A&O. Call light in reach.
[2022-01-02 13:04] VITALS: BP 108/55; PULSE 62; TEMP 97.6
[2022-01-02 16:58] VITALS: BP 124/63; PULSE 54; TEMP 97.8
--- NOTE | 2022-01-02 18:46 | NUR ---
Tele informed this RN that patient had a 10 second run of Afib RVR with a heart rate in the 170's. Also informed that patient was having PVC's. EKG ordered. Upon assessment, patient was up going to the bathroom. Patient was Short of breath, which is not abnormal for patient. Denied any chest pain or further symptoms. JUAN Amato notified. Instructed to continue and monitor patient and inform if any changes occur. Will pass this information onto oncoming shift. Call light in reach. Fall percautions in place.
[2022-01-02 20:27] VITALS: BP 123/61; PULSE 98; TEMP 98.1
[2022-01-02 23:05] VITALS: BP 117/58; PULSE 74; TEMP 98.5
[2022-01-03 03:20] VITALS: BP 122/68; PULSE 88; TEMP 97.9
[2022-01-03 06:05] LABS: MEAN CELL VOLUME 87 fl (80.0-100.0); MEAN CORPUSCULAR HGB CONC 33 g/dl (33.0-37.0); PLATELET COUNT 269 K/mm3 (130-400); RED BLOOD COUNT 3.39 M/mm3 (4.10-5.30); REDCELL DISTRIBUTION WIDTH-CV 14.9 % (11.5-14.5)
[2022-01-03 06:08] LABS: HEMATOCRIT 29.5 % (37.0-47.0); HEMOGLOBIN 9.6 g/dl (12.5-16.0); MEAN CORPUSCULAR HEMOGLOBIN 28 pg (27-31)
--- NOTE | 2022-01-03 06:10 | NUR ---
PT HAD UNEVENTFUL NIGHT THIS SHIFT. WORE CPAP ALL NIGHT. CONTINUES ON 4L NC OTHERWISE. PT DENIES N,V,D. AT THIS TIME. PICC IN PLACE. C&D. ALL NEEDS MET THIS SHIFT.
[2022-01-03 06:21] LABS: CALCIUM 7.2 mg/dL (8.4-10.2); CREATININE, serum 1.13 mg/dL (0.57-1.11); POTASSIUM 3.5 mmol/L (3.5-4.5)
[2022-01-03 07:12] LABS: BAND 2 % (0-10); BASOPHIL 1 % (0-2); LYMPHOCYTE 1 % (20.0-51.0); METAMYELOCYTE 2 % (0-0); NEUTROPHILS 93 % (42.0-75.2); PLATELET ESTIMATE NORMAL (NORMAL)
[2022-01-03 08:27] VITALS: BP 139/75; PULSE 88; TEMP 97.6
--- NOTE | 2022-01-03 09:07 | NUR ---
PATIENT DOING WELL THIS MORNING. CONT TO BE SHORT OF BREATH WITH EXERTION WHICH IS NORMAL FOR HER. 4L VIA NC IS BASELINE FOR HER OXYGEN NEEDS, SATS ARE GOOD WITH THIS. NO COUGH. AFEBRILE. PLAN TO DC WITH HOME HEALTH SERVICES.
[2022-01-03] MEDS ORDERED: CARDIZEM CD 24240 MG PO (09:12)
[2022-01-03 12:23] VITALS: BP 119/54; PULSE 88; TEMP 97.9
--- NOTE | 2022-01-03 13:53 | NUR ---
Promotions Assistant Sales Marketing collaborated with Hospitalist who advised patient will require placement at time of discharge. Hospitalist will also place palliative consult to discuss goals of care. SW contacted patient to discuss SNF referrals. Patient would like referrals sent to both [facility] [facility] and [facility]. SW faxed referrals. SW updated Melo at [facility]. Discharge Plan: SNF
--- NOTE | 2022-01-03 14:50 | NUR ---
Call made to patient's cell phone. She states that all her children and their spouses are ill or have health issues that came up and since her works and is also trying to help them, she doesn't feel going home is appropriate at this time. She is comfortable going to rehab with the eventual plan of returning home. We discussed her COPD, CAD, and HF. She stated her professor of criminal justice is trying to get her on the lung transplant list but her understanding is that even if she doesn't qualify for that, there are still treatment options available. She is unsure where everything stands since she got sick again but plans to follow-up once out of the hospital. I told her I would follow along and be available for her if any questions arise about her plan of care or options/resources available down the road.
[2022-01-03 16:58] VITALS: BP 132/64; PULSE 78; TEMP 97.9
[2022-01-03 20:48] VITALS: BP 126/69; PULSE 75; TEMP 97.7
[2022-01-04 00:38] VITALS: BP 115/50; PULSE 72; TEMP 98.2
--- NOTE | 2022-01-04 03:02 | NUR ---
PATIENT DOING WELL TONIGHT. X1 COMPLAINT OF SHORTNESS OF BREATH THAT WAS RESOLVED WITH USE OF ALBUTEROL INHALER. VSS AT THIS TIME. PICC R UA PATENT WITH GOOD BLOOD RETURN. DENIES PAIN. WEARING HER CPAP TONIGHT. WAS INCONTINENT OF BOWEL AND BLADDER X1 WITH BED CHANGE REQUIRED. BM WAS MEDIUM LOOSE BROWN STOOL. NO FURTHER NEEDS AT THIS TIME. CALL LIGHT IN REACH.
[2022-01-04 04:35] VITALS: BP 114/56; PULSE 60; TEMP 98
[2022-01-04 06:23] LABS: MEAN CELL VOLUME 88 fl (80.0-100.0); MEAN CORPUSCULAR HGB CONC 32 g/dl (33.0-37.0); MEAN PLATELET VOLUME 11.3 fl (7.4-10.4); PLATELET COUNT 279 K/mm3 (130-400); RED BLOOD COUNT 3.33 M/mm3 (4.10-5.30); REDCELL DISTRIBUTION WIDTH-CV 14.9 % (11.5-14.5)
[2022-01-04 06:30] LABS: HEMATOCRIT 29.3 % (37.0-47.0); HEMOGLOBIN 9.4 g/dl (12.5-16.0); MEAN CORPUSCULAR HEMOGLOBIN 28 pg (27-31)
[2022-01-04 06:39] LABS: ALBUMIN 2.4 gm/dL (3.4-4.8); BILIRUBIN,TOTAL 0.6 mg/dL (0.2-1.2); C-REACTIVE PROTEIN 0.05 mg/dL (0.00-0.50); CALCIUM 7.1 mg/dL (8.4-10.2); CREATININE, serum 0.9 mg/dL (0.57-1.11); MAGNESIUM 1.9 mg/dL (1.6-2.6); PHOSPHOROUS 1.7 mg/dL (2.3-4.7); POTASSIUM 3.6 mmol/L (3.5-4.5); TOTAL PROTEIN 4.5 gm/dL (6.2-8.1)
--- NOTE | 2022-01-04 07:30 | NUR ---
PT USING CALL LIGHT, UPON ENTRY, PT DYSPNIC, SHALLOW BREATHING STATING SOA. VITALS OBTAINED, SPO2 AT 96%. STAYED WITH PT UNTIL PT BREATHING REGULATED. UPPER LOBES CLEAR TO AUSCULTATION, BASES DIMINISHED BILATERALLY. ASSESSMENT COMPLETED TO BEST OF ABILITY. NOTICED GENERALIZED BRUISING ON EXTREMITIES. PT CALL LIGHT WITHIN REACH.
[2022-01-04 07:38] VITALS: BP 116/60; PULSE 80; TEMP 98.2
[2022-01-04 07:45] LABS: BAND 2 % (0-10); LYMPHOCYTE 3 % (20.0-51.0); NUCLEATED RED BLOOD CELL 1 (0-6)
[2022-01-04 07:46] LABS: NEUTROPHILS 94 % (42.0-75.2); PLATELET ESTIMATE NORMAL (NORMAL)
[2022-01-04 07:47] LABS: OVALOCYTES 1+
[2022-01-04 08:31] LABS: ERYTHROCYTE SEDIMENTATION RATE 6 mm/hr (0-30)
[2022-01-04 12:02] VITALS: BP 125/59; PULSE 74; TEMP 98.2
--- NOTE | 2022-01-04 14:48 | NUR ---
Clinical updates faxed to [facility] and [facility]
[2022-01-04 16:20] VITALS: BP 115/58; PULSE 78; TEMP 97.9
--- NOTE | 2022-01-04 16:30 | NUR ---
PT STATES FEELING SOA, FEELING "WHEEZY", SPO2 AT 100%. NOTIFIED RESPIRATORY THERAPY. HGB 9.1, PT LUNG SOUNDS REASSESSED CLEAR TO AUSCULTATION IN UPPER LOBES WHERE PT FELT WHEEZY.
--- NOTE | 2022-01-04 17:59 | NUR ---
NO FOOD AT TIME OF ASSESSMENT. PT CALLED OUT STATING SHE NEEDED HELP WITH INHALER USE. CHECKED SPO2, AT 98%, RESPIRATORY THERAPY NOTIFIED. SWITCHED TO CPAP.
[2022-01-04 19:14] VITALS: BP 144/11; PULSE 88; TEMP 97.9
--- NOTE | 2022-01-04 19:18 | NUR ---
REPORT GIVEN TO HAROLDO DANIEL.
--- NOTE | 2022-01-04 21:48 | NUR ---
Patient resting in bed upon enter the room. Patient on C-pap machine at this time. Patient denies SOB at this time. Patient denies any pain or discomfort. VS stable. All scheduled meds given per DEC. Call light in reach. Will continue to monitor.
[2022-01-05 00:06] VITALS: BP 108/51; PULSE 68; TEMP 97.6
[2022-01-05 04:44] VITALS: BP 109/60; PULSE 72; TEMP 97.5
[2022-01-05 07:02] LABS: HEMOGLOBIN 10.1 g/dl (12.5-16.0); MEAN CELL VOLUME 91 fl (80.0-100.0); MEAN CORPUSCULAR HEMOGLOBIN 28 pg (27-31); MEAN CORPUSCULAR HGB CONC 31 g/dl (33.0-37.0); MEAN PLATELET VOLUME 11.3 fl (7.4-10.4); PLATELET COUNT 288 K/mm3 (130-400); RED BLOOD COUNT 3.63 M/mm3 (4.10-5.30); REDCELL DISTRIBUTION WIDTH-CV 15.1 % (11.5-14.5)
[2022-01-05 07:09] LABS: HEMATOCRIT 32.9 % (37.0-47.0)
[2022-01-05 07:28] LABS: CREATININE, serum 0.81 mg/dL (0.57-1.11); POTASSIUM 3.4 mmol/L (3.5-4.5)
[2022-01-05 08:23] VITALS: BP 127/51; PULSE 78; TEMP 98.2
[2022-01-05 08:55] LABS: BAND 2 % (0-10); LYMPHOCYTE 10 % (20.0-51.0); METAMYELOCYTE 2 % (0-0); NEUTROPHILS 82 % (42.0-75.2); PLATELET ESTIMATE NORMAL (NORMAL)
[2022-01-05 11:43] VITALS: BP 112/62; PULSE 86; TEMP 98.2
[2022-01-05 17:17] VITALS: BP 126/65; PULSE 91; TEMP 98.1
[2022-01-05 21:09] VITALS: BP 131/58; PULSE 94; TEMP 98.1
[2022-01-06 00:42] VITALS: BP 119/69; PULSE 75; TEMP 97.9
[2022-01-06 04:02] VITALS: BP 114/60; PULSE 78; TEMP 97.8
--- NOTE | 2022-01-06 05:15 | NUR ---
PATIENT RESTED QUIETLY IN BED THROUGHOUT THE SHIFT. PATIENT USED THE BSC SEVERAL TIMES WITH NO ISSUES
[2022-01-06 06:36] LABS: MEAN CELL VOLUME 87 fl (80.0-100.0); MEAN CORPUSCULAR HGB CONC 32 g/dl (33.0-37.0); MEAN PLATELET VOLUME 11.2 fl (7.4-10.4); PLATELET COUNT 239 K/mm3 (130-400); RED BLOOD COUNT 3.49 M/mm3 (4.10-5.30); REDCELL DISTRIBUTION WIDTH-CV 15.2 % (11.5-14.5)
[2022-01-06 06:44] LABS: HEMATOCRIT 30.5 % (37.0-47.0); HEMOGLOBIN 9.8 g/dl (12.5-16.0); MEAN CORPUSCULAR HEMOGLOBIN 28 pg (27-31)
[2022-01-06 07:05] LABS: CALCIUM 6.8 mg/dL (8.4-10.2); CREATININE, serum 0.74 mg/dL (0.57-1.11); POTASSIUM 4.2 mmol/L (3.5-4.5)
[2022-01-06 08:38] LABS: BAND 1 % (0-10); LYMPHOCYTE 3 % (20.0-51.0)
[2022-01-06 08:40] LABS: ANISOCYTOSIS 1+; NEUTROPHILS 93 % (42.0-75.2); PLATELET ESTIMATE NORMAL (NORMAL)
[2022-01-06 08:41] LABS: HYPOCHROMIA 1+
[2022-01-06 08:44] VITALS: BP 118/85; PULSE 57; TEMP 98
[2022-01-06 11:07] VITALS: BP 118/55; PULSE 76; TEMP 98.2
--- NOTE | 2022-01-06 11:58 | NUR ---
Scheduled medications given. Shift assessment performed. Patient currently requiring 4L of O2 via nasal cannula. Dyspnea upon exertion noted. VSS. Patient A&O. Patient denies any pain, discomfort, or further needs at this time. Call light in reach. PICC line in place. No signs of complications noted.
--- NOTE | 2022-01-06 15:51 | NUR ---
Alex advised they can clinically accept patient and he will begin working on insurance authorization.
[2022-01-06 16:02] VITALS: BP 115/55; PULSE 82; TEMP 98.1
--- NOTE | 2022-01-06 18:05 | NUR ---
Patient has had a an ok day. Currently requiring 4L of O2. Dyspnea upon exertion noted. Patient denies any pain, discomfort, or futher needs at this time. Call light in reach. VSS. Patient A&O.
[2022-01-06 20:48] VITALS: BP 115/47; PULSE 98; TEMP 98.7
[2022-01-07 00:16] VITALS: BP 105/60; PULSE 85; TEMP 97.8
[2022-01-07 04:09] VITALS: BP 101/50; PULSE 83; TEMP 98
--- NOTE | 2022-01-07 04:44 | NUR ---
NO NEW ISSUES NOTED OR REPORTED BY PATIENT THROUGHOUT THE NIGHT. PATIENT LOOKING FORWARD TO BEING OUT OF ISOLATION ON THURSDAY.
[2022-01-07 07:35] VITALS: BP 105/57; PULSE 87; TEMP 98.1
--- NOTE | 2022-01-07 08:58 | NUR ---
Scheduled medications given. Shift assessment performed. VSS. Patient A&O. PICC line in place, flushes with good blood return. RUE edematous. No erythma, pain, or tenderness. Patient currently on 4L of O2 via nasal cannula. Dyspnea upon exertion noted. Patient is having episodes of diarrhea. Patient denies any further pain, discomfort, SOA, or further needs at this time. Call light in reach.
[2022-01-07 11:41] VITALS: BP 117/61; PULSE 96; TEMP 97.6
[2022-01-07 15:49] VITALS: BP 106/50; PULSE 88; TEMP 98.4
--- NOTE | 2022-01-07 16:09 | NUR ---
Asw/Asuw Tactical Air Controller was contacted by Fidelina at [facility] who advised they have submitted for authorization. SW followed up with patient on preferences and advised that both facilities are able to accept. Patient states [facility] has already been in contact with her and is fine with going there. SW faxed clinical updates to both facilities. Patient also reported that BIBIANA Smith is her primary care provider.
--- NOTE | 2022-01-07 17:53 | NUR ---
Patient had an uneventful day. VSS. Patient A&O. Currently requiring 4L of O2 via nasal cannula. Denies any pain, discomfort, SOA, or further needs at this time. Call light in reach.
[2022-01-07 20:06] VITALS: BP 107/44; PULSE 89; TEMP 98.3
[2022-01-08 00:13] VITALS: BP 107/51; PULSE 89; TEMP 98.1
[2022-01-08 04:14] VITALS: BP 104/79; PULSE 82; TEMP 97.7
--- NOTE | 2022-01-08 05:46 | NUR ---
NO NEW ISSUES NOTED OR REPORTED BY PATIENT THROUGHOUT THE NIGHT. NO BM'S THIS SHIFT.
[2022-01-08 06:39] LABS: MEAN CELL VOLUME 91 fl (80.0-100.0); MEAN CORPUSCULAR HGB CONC 31 g/dl (33.0-37.0); MEAN PLATELET VOLUME 10.9 fl (7.4-10.4); PLATELET COUNT 246 K/mm3 (130-400); RED BLOOD COUNT 3.51 M/mm3 (4.10-5.30); REDCELL DISTRIBUTION WIDTH-CV 15.3 % (11.5-14.5)
[2022-01-08 06:42] LABS: HEMATOCRIT 31.9 % (37.0-47.0); HEMOGLOBIN 9.9 g/dl (12.5-16.0); MEAN CORPUSCULAR HEMOGLOBIN 28 pg (27-31)
[2022-01-08 06:43] LABS: CALCIUM 7.2 mg/dL (8.4-10.2); CREATININE, serum 0.72 mg/dL (0.57-1.11); POTASSIUM 3.8 mmol/L (3.5-4.5)
[2022-01-08 07:20] VITALS: BP 122/52; PULSE 80; TEMP 98.2
[2022-01-08 07:35] LABS: BAND 1 % (0-10); LYMPHOCYTE 6 % (20.0-51.0); NEUTROPHILS 89 % (42.0-75.2); NUCLEATED RED BLOOD CELL 1 (0-6); PLATELET ESTIMATE NORMAL (NORMAL)
[2022-01-08 07:36] LABS: OVALOCYTES 1+; POLYCHROMASIA 1+
--- NOTE | 2022-01-08 08:54 | NUR ---
Scheduled medications given. Shift assessment performed. Patient currently requiring 4L of O2 via nasal cannula. Dyspnea upon exertion noted. PICC line in place on patient right upper arm. Flushes with good blood return. Non pitting edema noted on RUE. No redness, pain, or tenderness. VSS. Patient A&O. Patient denies any pain, discomfort, SOA, or further needs at this time. Call light in reach.
[2022-01-08 11:52] VITALS: BP 107/42; PULSE 92; TEMP 98.3
--- NOTE | 2022-01-08 13:50 | NUR ---
Locomotive Repairer Diesel spoke with Alex at [facility] who advised they have also submitted for auth as they are a contracted facility with [employer].
[2022-01-08 16:05] VITALS: BP 109/57; PULSE 79; TEMP 97.7
--- NOTE | 2022-01-08 19:53 | NUR ---
Patient has had an uneventful day. Currenlty requiring 4L of O2 via nasal cannula. VSS. Patient A&O. Denies any pain, discomfort, SOA, or further needs at this time. Call light in reach.
[2022-01-09 04:56] VITALS: BP 11/62; PULSE 59; TEMP 98.1
[2022-01-09 07:52] VITALS: BP 109/71; PULSE 45; PULSE 89; TEMP 97.9
--- NOTE | 2022-01-09 10:36 | NUR ---
PT SITTING UP IN BED. MORNING MEDICATIONS GIVEN. SHIFT ASSESSMENT COMPLETED. PICC LINE FLUSHES AND HAS GOOD BLOOD RETURN. PT DENIES ANY PAIN OR NEEDS AT THIS TIME. PT IS WANTED TO ADVANCE DIET, ST CONSULTED. WILL CONTINUE TO MONITOR.
[2022-01-09 11:27] VITALS: BP 114/62; PULSE 75; TEMP 98
[2022-01-09] MEDS ORDERED: NYSTATIN OR100 MU/ML PO (11:44)
[2022-01-09] MEDS ORDERED: PREDNISONE10 MG PO (12:24)
--- NOTE | 2022-01-09 12:31 | NUR ---
Tufter contacted both [facility] and [facility]. Both can accept today as patient will be out of isolation today. SW contacted patient to provide update and she advised that her plan was still to discharge to [facility]. CAS contacted John at [facility] who advised patient's BCBS would cover 80% for first 100 days and Medicare will pick up operator the other 20%. John advised they were able to secure authorization. CAS faxed discharge orders to John and set transport time for 1330. CAS provided transport time to patient and patient's , Brijesh. Both are in agreement. Discharge Plan: [facility]
--- NOTE | 2022-01-09 13:15 | NUR ---
PT BELONGINGS PACKED. PT LAYING FLAT AFTER PICC LINE REMOVAL. WAITING FOR [facility] TRANSPORTATION TO ARRIVE. UPDATED ON DISCHARGE STATUS.
--- NOTE | 2022-01-09 14:03 | NUR ---
pt escorted dowstairs with belongings. will call report to sulema christy.
== END 2022-01-09 14:14 | DRG 177 ==
LOC: COL.ER 17:46 → ICU 19:50 → MEDICAL 19:50
PROVIDERS: Family Medicine; Internal Medicine; Internal Medicine Sleep Medicine; Physician Assistant; Student in an Organized Health Care Education/Training Program; ADMIT Internal Medicine
PROC: 02HV33Z Insertion of Infusion Device into Superior Vena Cava, Percutaneous Approach (ICD-10-PCS; principal; 2021-12-31)
PROC: 5A09357 Assistance with Respiratory Ventilation, Less than 24 Consecutive Hours, Continuous Positive Airway Pressure (ICD-10-PCS; 2022-01-07)
DX: U07.1 COVID-19 (principal); J96.21 Acute and chronic respiratory failure with hypoxia; J12.82 Pneumonia due to coronavirus disease 2019; J44.1 Chronic obstructive pulmonary disease with (acute) exacerbation; N17.9 Acute kidney failure, unspecified; B37.0 Candidal stomatitis; I25.10 Atherosclerotic heart disease of native coronary artery without angina pectoris; I50.9 Heart failure, unspecified; I11.0 Hypertensive heart disease with heart failure; E87.6 Hypokalemia; I48.0 Paroxysmal atrial fibrillation; E03.9 Hypothyroidism, unspecified; I25.2 Old myocardial infarction; Z95.5 Presence of coronary angioplasty implant and graft; Z86.73 Personal history of transient ischemic attack (TIA), and cerebral infarction without residual deficits; Z79.82 Long term (current) use of aspirin
CPT/HCPCS: 99223-AI; 99231-AI; 99232-AI; 99233-AI; 99239; A4314; C1751; J0696; J1100; J1644; J1650; J2405; J2930; J3480; J7030; J7120; J7512; J8540

== ENCOUNTER 2022-03-12 09:52 | Inpatient (IN) | payer OTHER, MEDICARE ==
[~2022-03-12] VITALS: Ht 157.5 cm; Wt 77.9 kg
[~2022-03-12 09:52] MED LIST changes: +CARDIZEM CD 24240 MG PO; +NITRO-DUR0.2 MG/PAT TD; -NITRO-DUR0.4 MG/PAT TD; +NYSTATIN OR100 MU/ML PO; +PREDNISONE10 MG PO; +RT ADVAIR 528 DISKUS IH; +SINGULAIR 110 MG/TAB PO; +ZEBETA10 MG PO
[2022-03-12 10:37] LABS: BASO # 0.1 K/mm3 (0.0-0.2); BASO % 0.5 % (0.0-2.0); EOS # 0.3 K/mm3 (0.0-0.7); EOS % 2.9 % (0.0-4.0); GRAN # 7.8 K/mm3 (1.4-6.5); GRAN % 82.3 % (42.2-75.2); HEMOGLOBIN 11.2 g/dl (12.5-16.0); LYMPH # 0.9 K/mm3 (1.2-3.4); LYMPH % 9.7 % (20.0-51.0); MEAN CELL VOLUME 89 fl (80.0-100.0); MEAN CORPUSCULAR HEMOGLOBIN 28 pg (27-31); MEAN CORPUSCULAR HGB CONC 31 g/dl (33.0-37.0); MEAN PLATELET VOLUME 9.2 fl (7.4-10.4); MONO # 0.4 K/mm3 (0.1-0.6); MONO % 4.2 % (1.7-9.3); PLATELET COUNT 460 K/mm3 (130-400); REDCELL DISTRIBUTION WIDTH-CV 15.6 % (11.5-14.5)
[2022-03-12 10:40] LABS: ALBUMIN 3.5 gm/dL (3.4-4.8); ALKALINE PHOSPHATASE 110 U/L (40-150); ANION GAP 10 mmol/L (7-16); AST,SGOT 9 U/L (5-34); BILIRUBIN,TOTAL 0.9 mg/dL (0.2-1.2); BLOOD UREA NITROGEN 7 mg/dL (10-20); CALCIUM 8.9 mg/dL (8.4-10.2); CARBON DIOXIDE 29 mmol/L (23-31); CHLORIDE 102 mmol/L (98-107); CREATININE, serum 0.89 mg/dL (0.57-1.11); GLUCOSE 93 mg/dL (70-99); HEMATOCRIT 35.7 % (37.0-47.0); POTASSIUM 3.3 mmol/L (3.5-4.5); SODIUM 141 mmol/L (136-145); TOTAL PROTEIN 7.3 gm/dL (6.2-8.1)
[2022-03-12 10:46] LABS: ALANINE AMINOTRANSFERASE < 6 U/L (0-55); TROPONIN-I < 0.010 ng/mL (0.00-0.033)
[2022-03-12] MEDS ORDERED: PRILOTC (12:47)
[2022-03-12] MEDS ORDERED: ZOFRAN ODT4 MG PO (12:55)
[2022-03-12] MEDS ORDERED: LASIX 20MG TABL20 MG PO (12:59)
[2022-03-12] MEDS ORDERED: COZAAR 25MG25 MG/TAB PO (12:59)
[2022-03-12] MEDS ORDERED: KLOR-CON20 MEQ PO (13:02)
[2022-03-12 14:07] VITALS: BP 110/83; PULSE 83; TEMP 98.2
[2022-03-12 16:17] VITALS: BP 126/50; PULSE 84; TEMP 98
--- NOTE | 2022-03-12 18:20 | NUR ---
PT SITTING UP IN BED ON 4 LIT VIA NC TALKING ON THE PHONE. PT STATES THAT SHE WOULD LIKE TO HAVE SOME TEA. ITEMS WERE GOTTEN FOR PT. PT STATES NO SOB OR PAIN AT THIS TIME. CALL LIGHT IS WITHIN REACH.
[2022-03-12 19:50] VITALS: BP 121/49; PULSE 91; TEMP 97.7
[2022-03-12 23:38] VITALS: BP 115/51; PULSE 93; TEMP 97.4
[2022-03-13 03:30] VITALS: BP 112/78; PULSE 98; TEMP 98.1
--- NOTE | 2022-03-13 05:45 | NUR ---
RESTED THROUGH THE NIGHT WITHOUT INCIDENT. AM MEDS GIVEN. CALL LIGHT WI REACH. NEEDS MET.
[2022-03-13 06:42] LABS: HEMOGLOBIN 10.1 g/dl (12.5-16.0); MEAN CELL VOLUME 89 fl (80.0-100.0); MEAN CORPUSCULAR HEMOGLOBIN 28 pg (27-31); MEAN CORPUSCULAR HGB CONC 32 g/dl (33.0-37.0); MEAN PLATELET VOLUME 9.3 fl (7.4-10.4); PLATELET COUNT 404 K/mm3 (130-400); RED BLOOD COUNT 3.59 M/mm3 (4.10-5.30); REDCELL DISTRIBUTION WIDTH-CV 15.4 % (11.5-14.5)
[2022-03-13 06:44] LABS: HEMATOCRIT 32.1 % (37.0-47.0)
[2022-03-13 06:56] LABS: CALCIUM 8.6 mg/dL (8.4-10.2); CREATININE, serum 0.96 mg/dL (0.57-1.11)
[2022-03-13 07:11] LABS: BAND 3 % (0-10); LYMPHOCYTE 2 % (20.0-51.0); NEUTROPHILS 95 % (42.0-75.2); PLATELET ESTIMATE NORMAL (NORMAL)
[2022-03-13 07:50] VITALS: BP 123/52; PULSE 87; TEMP 98.6
--- NOTE | 2022-03-13 09:57 | NUR ---
Initial visit; Patient appeared glad to have someone to talk with about her need to leave so she can spend the 'holiday' with his autistic Grandson. Patient was receptive to prayer and asked if she could mention Radio Sportscaster in her prayers. Radio Sportscaster thanked her. Radio Sportscaster will keep her in Radio Sportscaster's prayers and will follow-up while patient is here at [facility].
[2022-03-13 12:21] VITALS: BP 129/99; PULSE 106; TEMP 98
--- NOTE | 2022-03-13 12:47 | NUR ---
hall worker met with patient to discuss discharge plan and complete intake. Patient lives at home with her Brijesh ([phone]) in [place]. Patient is independent with her ADL's and utilizes a walker " when i feel like i need it". Patient is on home oxygen and is established through [employer] for her supplies. She has a home concentrator, a portable and a CPAP machine. PCP is Laurence David and she utilizes [facility] for medications with no cost difficulty. Patient states that she does not have a DPOA-HC established and is not interested in creating one at this time. Patient reports that she does have home health services established through [facility] for PT and nursing care. She is planning on returning home once medically stable with continued HH services. Discharge plan: Home w/ current HH
--- NOTE | 2022-03-13 12:49 | NUR ---
PT SITTING ON SIDE OF BED WITH 4LIT VIA NC ON. PT STATES THAT A FEW OF HER MEDICATIONS THAT WERE ORDERED FOR THIS AM SHE TAKES IN THE PM. PHARM WAS CALLED TO GET THAT RETIMED. PT STATES THAT SHE IS NOT HAVING ANY PAIN OR DISCOMFORT AT THIS TIME. PT IS GETTING SOB WHEN SHE GETS UP TO THE BATHROOM AND WALKING AROUND. PT STATES THAT SHE HAS ALREADY GOT HER BREAKFAST ORDERED AND DOES NOT NEEDS ANYTHING AT THIS TIME. CALL LIGHT IS WITHIN REACH.
[2022-03-13 16:34] VITALS: BP 120/47; PULSE 90; TEMP 98.1
--- NOTE | 2022-03-13 18:38 | NUR ---
PT LAYING IN BED WITH 4 LIT VIA NC ON WATCHING PHONE. PT STATES THAT HER HEADACHE IS GONE. PT STATES NO NEEDS AT THIS TIME. CALL LIGHT IS WITHIN REACH.
[2022-03-13 20:04] VITALS: BP 131/64; PULSE 100; TEMP 98.2
--- NOTE | 2022-03-13 20:30 | NUR ---
Initial shift assessment done- denies pain at this time- o2 at 4L/nc, which is her baseline, states still having SOB on exertion, Tele on- sinus dysrrythmias, states would like Tylenol for headache- due again at 2200-pt states thats will be fine. Will give some mookiemn crackers for snack tonight.
[2022-03-14] VITALS (15 sets, daily range): BP systolic 107–129; BP diastolic 47–79; PULSE 86–112; TEMP 97.6–98.1
--- NOTE | 2022-03-14 05:17 | NUR ---
Rested well last night-- wearing cpap all night with 4L/o2 bleed in-sats 100%, VSS, tylenol given x1 for headache.
--- NOTE | 2022-03-14 10:14 | NUR ---
Follow-up visit; Patient having nausea this morning but thanked Clamp Jig Assembler for checking on her and keeping her in her prayers. Clamp Jig Assembler offered God's blessings and prays she will be able to rest peacefully soon.
--- NOTE | 2022-03-14 11:04 | NUR ---
PATIENT C/O N/V, AND CONSTIPATON. PATIENT GIVEN 4MG IV ZOFRAN. NOT AFFECTIVE. PATIENT HAD EPISODE OF PROJECTILE VOMITING. PROVIDER NOTIFIED, ORDERED COVID TEST, ABD XRAY, SUPPOSITORY AND IV PHENEGRAN. PATIENT IN BED RESTING. AMBULATING TO AND FROM BATHROOM OF OWN VOLITION. NOT USING WALKER. VERY STEADY GAIT. NO COMPLAINTS OF PAIN, DISCOMFORT IN ABD DUE TO CONSTIPATION. PATIENT PLACED ON ISOLATION UNTIL COVID TEST RESULTED.
--- NOTE | 2022-03-14 11:30 | NUR ---
PATIENT PLACED ON NPO, CARDIZIEM DRIP AT 5MG/HR ORDERED WITH 1000ML NS AT 50MLS/HR. PATIENT ALSO RECIEVING IV FLAGYL AT 100ML/HR AND AZYTHROMYCIN AT 250MLS/HR. PATIENT HAS TWO IV SITES, NO COMPLAINTS OF PAIN. LUNG SOUNDS ASSESSED BEFORE INITIATION AND AFTER ANTIBIOTICS COMPLETED. CARIDZEM VITALS PER NURSING JUDGEMENT Q15MX3, Q30MX2, Q2HX2 THEN IF STABLE NORMAL Q4 VITALS. CARDIZEM DRIP A BASAL RATE DUE TO PATIENT ORAL DOSE AT 250MG DAILY, PER ORDER. PATIENT REMAINS IN NSR, WITH INT TACH DURING BOUTS OF EMISIS. WILL CONTINUE TO MONITOR PATIENT HR AND BP.
--- NOTE | 2022-03-14 17:53 | NUR ---
PLACED PATIENT NGT IN LEFT NARES, 14FR TO LOW INT SUCTION. PATIENT TOLERATED WELL. [address] FIRST ATTEMPT SPIRALED OUT OF PATIENT MOUTH. PATIENT REPORTED SURGERY ON RIGHT NARES FOLLOWING 28DAY NGT IN [place] FOR SBO A FEW MONTHS PRIOR. GASTRIC GONTENTS SUCTIONING. XRAY CALLED TO CONFIRM. MEASURED AT 65 AT THE CLIP. SECURED AND TAPED AT THE NOSE.
[2022-03-15] VITALS (21 sets, daily range): BP systolic 94–139; BP diastolic 38–81; PULSE 54–99; TEMP 97.6–98.3
--- NOTE | 2022-03-15 02:01 | NUR ---
Pt alert and oriented this evening, resting quietly. Denies pain. Denies nausea. No vomiting episodes yet this shift. NGT in left nare, clipped at 65 in and taped. NGT has low intermittent suction. Gastric secretions are a light yellow/light green. Shift assessment performed. Medications administered per orders and education provided. Pt remains NPO. Pt requested ice chips, notified provider and small amounts of ice chips were approved. Pt is tolerating. No significant skin issues noted. Pt is on 4L oxygen NC, satting WNL. RR is 16-20, closer to 20 when pt is OOB. Pt is a little SOB when OOB to BSC, but stops when pt is at rest. Pt is continuing with IV fluids and IV cardizem gtt. Continuing to monitor HR and BP every hour. BP and HR are stable. Pt up to void x2. Continuing to monitor intake and output. Lung sounds are clear. No BLE edema noted. Pt is resting and does not report any questions at this time, will continue to monitor.
--- NOTE | 2022-03-15 06:22 | NUR ---
No advserse events overnight. Pt remains alert and oriented. Cardizem gtt continues, VS stable, monitoring q1hr. IV fluids and IV flagyl continuing. Adeuqte output overnight. NGT remains at 65 jennifer, low intermittent suction. Gastric secretions are a light green/yellow color. Pt tolerating ice chips. No new episodes of nausea/vomiting overnight. Pt does not report any questions, will continue to montior.
[2022-03-15 06:53] LABS: HEMOGLOBIN 10.6 g/dl (12.5-16.0); MEAN CORPUSCULAR HEMOGLOBIN 28 pg (27-31); MEAN CORPUSCULAR HGB CONC 30 g/dl (33.0-37.0); MEAN PLATELET VOLUME 9.5 fl (7.4-10.4); PLATELET COUNT 375 K/mm3 (130-400); RED BLOOD COUNT 3.79 M/mm3 (4.10-5.30); REDCELL DISTRIBUTION WIDTH-CV 15.8 % (11.5-14.5)
[2022-03-15 06:58] LABS: HEMATOCRIT 35.6 % (37.0-47.0); MEAN CELL VOLUME 94 fl (80.0-100.0)
[2022-03-15 07:05] LABS: CALCIUM 8.5 mg/dL (8.4-10.2); CREATININE, serum 0.9 mg/dL (0.57-1.11); POTASSIUM 4.5 mmol/L (3.5-4.5)
--- NOTE | 2022-03-15 07:48 | NUR ---
Pt had complaints that she was starting to not feel well. Did not appear that the NG was draining. Used syringe and flushed what output there was in the tubing of NG tube. NG then started draining some. Assisted pt up to the commode and pt did void. Pt did well and was steady on her feet. Pt does have some ice chips and is aware that she needs to use them sparingly. Pt left with call light within reach
[2022-03-15 07:52] LABS: LYMPHOCYTE 3 % (20.0-51.0); NEUTROPHILS 95 % (42.0-75.2)
[2022-03-15 07:53] LABS: ANISOCYTOSIS 1+; PLATELET ESTIMATE NORMAL (NORMAL)
--- NOTE | 2022-03-15 11:00 | NUR ---
Pt reports that she is doing okay. States that she has had an NG tube before, but this one seems to be bothering her throat more. NG continues to have greenish output, small amount. Pt is eating ice chips, but sparingly. Pt has slight complaint of a headache, denies needing anything for it. Reports abd feels okay. Awaiting physician to tell her the plan.
--- NOTE | 2022-03-15 12:56 | NUR ---
Report given to Leroy ZARCO
[2022-03-15 14:39] LABS: PARTIAL THROMBOPLASTIN TIME 22.8 SECONDS (26.0-37.0)
[2022-03-16] VITALS (15 sets, daily range): BP systolic 102–140; BP diastolic 44–82; PULSE 49–97; TEMP 97.3–98.1
--- NOTE | 2022-03-16 05:24 | NUR ---
No advser events overnight. Pt remains alert and oriented. Adequate urine output overnight. NGT remains in left nare on low intermittent suction. Gastric secretion output is adequate and brown colored. Clipped at 65. Applied new tape to nose/NGT to hold it in place. Pt continues on heparin gtt, cardizem gtt, NS, and IV flagyl. Continuing to assess VS every hour. VS WNL. Afberile. Satting in upper 90's on 4L NC. No nausea or vomiting overnight. Pt reports no questions at this time, will continue to monitor.
--- NOTE | 2022-03-16 05:48 | NUR ---
PT REPORTED THAT SHE "SNEEZED" WHILE UP ON BSC AND THE NGT "FELL OUT". NOTIFIED BIBIANA RODRIGUEZ. PT HAS HAD NO NAUSEA/VOMITING THE PAST 2 NIGHTS. TOTAL NGT FLUID EMPTIED WAS 600 ML OF BROWN GASTRIC OUTPUT. WAS TOLD BY PROVIDER TO LEAVE NGT OUT FOR NOW AND TO SEE WHAT DAYSHIFT PROVIDERS WOULD LIKE TO DO. EDUCATED PT TO NOTIFY OF NEW ONSET NAUSEA/VOMITING. WILL CONTINUE TO MONITOR.
--- NOTE | 2022-03-16 09:00 | NUR ---
HEP XA RESULT 0.13. DRIP ADJUSTED PER PROTOCOL TO 13.5ML PER HOUR. NEXT HEP XA DUE AT 1500.
[2022-03-16 09:10] LABS: HEMOGLOBIN 10.4 g/dl (12.5-16.0); MEAN CELL VOLUME 92 fl (80.0-100.0); MEAN CORPUSCULAR HEMOGLOBIN 29 pg (27-31); MEAN CORPUSCULAR HGB CONC 31 g/dl (33.0-37.0); MEAN PLATELET VOLUME 9.4 fl (7.4-10.4); PLATELET COUNT 313 K/mm3 (130-400); RED BLOOD COUNT 3.65 M/mm3 (4.10-5.30); REDCELL DISTRIBUTION WIDTH-CV 15.5 % (11.5-14.5)
[2022-03-16 09:11] LABS: HEMATOCRIT 33.5 % (37.0-47.0)
[2022-03-16 09:28] LABS: CALCIUM 7.9 mg/dL (8.4-10.2); CREATININE, serum 0.82 mg/dL (0.57-1.11); POTASSIUM 4.2 mmol/L (3.5-4.5)
--- NOTE | 2022-03-16 15:47 | NUR ---
HEP XA RESULT 0.54. ADJUSTED DRIP RATE PER PROTOCOL TO 12.5ML PER HOUR. NEXT LEVEL TO BE DRAWN AT 2100
--- NOTE | 2022-03-16 20:00 | NUR ---
Patient is in bed, alert and oriented x 4, VSS, soft BP. States some discomfort in abdomen. Telemetry in place NSR. 4L O2 NC. Receiving Hep GTT 12.5 ML/HR. Assessment completed, meds provided, no otherneeds at this time. Call light within reach.
[2022-03-17 00:04] VITALS: BP 143/78; PULSE 101; TEMP 97.5
[2022-03-17 04:44] VITALS: BP 131/79; PULSE 67; TEMP 98
[2022-03-17 04:48] LABS: HEMOGLOBIN 10.5 g/dl (12.5-16.0); MEAN CELL VOLUME 94 fl (80.0-100.0); MEAN CORPUSCULAR HEMOGLOBIN 28 pg (27-31); MEAN CORPUSCULAR HGB CONC 30 g/dl (33.0-37.0); MEAN PLATELET VOLUME 9.7 fl (7.4-10.4); PLATELET COUNT 309 K/mm3 (130-400); RED BLOOD COUNT 3.74 M/mm3 (4.10-5.30); REDCELL DISTRIBUTION WIDTH-CV 15.4 % (11.5-14.5)
[2022-03-17 05:14] LABS: ALBUMIN 2.8 gm/dL (3.4-4.8); CALCIUM 8.2 mg/dL (8.4-10.2); CREATININE, serum 0.87 mg/dL (0.57-1.11); MAGNESIUM 2.7 mg/dL (1.6-2.6); PHOSPHOROUS 3.8 mg/dL (2.3-4.7); POTASSIUM 4.2 mmol/L (3.5-4.5)
[2022-03-17 05:38] LABS: BAND 1 % (0-10); EOSINOPHIL 1 % (0-4); HYPOCHROMIA 3+; LYMPHOCYTE 2 % (20.0-51.0); METAMYELOCYTE 1 % (0-0); NEUTROPHILS 92 % (42.0-75.2); PLATELET ESTIMATE NORMAL (NORMAL)
[2022-03-17 05:40] LABS: ANISOCYTOSIS 1+; OVALOCYTES 1+
--- NOTE | 2022-03-17 06:44 | NUR ---
New rate of hep gtt updated in IV PUMP from 12.5 to 14 m/ hr. EMAR updated from 1100 units to 1400.
[2022-03-17 07:04] VITALS: BP 116/46; PULSE 79; TEMP 97.8
--- NOTE | 2022-03-17 09:30 | NUR ---
PATIENT DIET ADVANCED TO [facility] SOFT. ABLE TO TOLERATE BREAKFAST WELL AND DENIES ABD PAIN, NVD, OR ANY OTHER DIFFICULTIES. COMMUNICATED THIS TO HOSPITALIST WHO IS AGREEABLE TO DISCHARGE TODAY IF PATIENT TOLERATES LUNCH MEAL.
[2022-03-17 11:45] VITALS: BP 117/50; PULSE 84; TEMP 97.7
[2022-03-17] MEDS ORDERED: PREDNISONE10 MG PO (11:52)
[2022-03-17] MEDS ORDERED: MIRALAX PA17 GM/Dose PO (11:54)
[2022-03-17] MEDS ORDERED: SENOKOT8.6 MG PO (11:55)
[2022-03-17] MEDS ORDERED: ZOFRAN 4MG T4 MG/TAB PO (11:59)
== END 2022-03-17 15:45 | disposition home or self-care (01) | DRG 189 ==
LOC: COL.ER 09:52 → MEDICAL 11:46
PROVIDERS: Family Medicine; Internal Medicine; Physician Assistant; ADMIT Student in an Organized Health Care Education/Training Program
DX: J96.21 Acute and chronic respiratory failure with hypoxia (principal); J44.1 Chronic obstructive pulmonary disease with (acute) exacerbation; K56.600 Partial intestinal obstruction, unspecified as to cause; I25.10 Atherosclerotic heart disease of native coronary artery without angina pectoris; I11.0 Hypertensive heart disease with heart failure; I50.9 Heart failure, unspecified; I48.0 Paroxysmal atrial fibrillation; G47.33 Obstructive sleep apnea (adult) (pediatric); K21.9 Gastro-esophageal reflux disease without esophagitis; I34.0 Nonrheumatic mitral (valve) insufficiency; E87.6 Hypokalemia; E03.9 Hypothyroidism, unspecified; E78.5 Hyperlipidemia, unspecified; Z20.822 Contact with and (suspected) exposure to COVID-19; Z87.891 Personal history of nicotine dependence; I25.2 Old myocardial infarction; Z95.5 Presence of coronary angioplasty implant and graft; Z86.73 Personal history of transient ischemic attack (TIA), and cerebral infarction without residual deficits; Z79.82 Long term (current) use of aspirin; Z23 Encounter for immunization
CPT/HCPCS: 99222-AI; 99232-AI; 99233-AI; J0456; J1644; J1650; J1940; J2405; J2550; J2920; J7030; J7050; Q9967

== ENCOUNTER 2023-03-22 08:46 | Emergency (ER) | payer OTHER, MEDICARE ==
[~2023-03-22] VITALS: Ht 157.5 cm; Wt 84.1 kg
[~2023-03-22 08:46] MED LIST changes: +MIRALAX PA17 GM/Dose PO; +PRILOTC; +SENOKOT8.6 MG PO; +ZOFRAN 4MG T4 MG/TAB PO
[2023-03-22 09:33] LABS: BASO % 0.3 % (0.0-2.0); EOS # 0.1 K/mm3 (0.0-0.7); EOS % 0.8 % (0.0-4.0); GRAN # 11.2 K/mm3 (1.4-6.5); GRAN % 86.6 % (42.2-75.2); LYMPH # 0.8 K/mm3 (1.2-3.4); LYMPH % 6.5 % (20.0-51.0); MEAN CELL VOLUME 89 fl (80.0-100.0); MEAN CORPUSCULAR HGB CONC 30 g/dl (33.0-37.0); MEAN PLATELET VOLUME 9.7 fl (7.4-10.4); MONO # 0.7 K/mm3 (0.1-0.6); MONO % 5.4 % (1.7-9.3); PLATELET COUNT 295 K/mm3 (130-400); REDCELL DISTRIBUTION WIDTH-CV 15.8 % (11.5-14.5)
[2023-03-22 09:38] LABS: HEMATOCRIT 32.2 % (37.0-47.0); HEMOGLOBIN 9.7 g/dl (12.5-16.0); MEAN CORPUSCULAR HEMOGLOBIN 27 pg (27-31)
[2023-03-22 09:39] LABS: ARTERIAL BLD GAS O2 SATURATION 97.2 % (92-100); ARTERIAL BLOOD GAS BASE EXCESS 6.7 (-2-2); ARTERIAL BLOOD GAS HCO3 31.6 meq/L (22-26); ARTERIAL BLOOD GAS PCO2 46.9 mmHg (35-45); ARTERIAL BLOOD GAS PO2 88.4 mmHg (80-100); ARTERIAL BLOOD GAS pH 7.45 (7.35-7.45)
[2023-03-22 09:57] LABS: BILIRUBIN,TOTAL 0.7 mg/dL (0.2-1.2); CALCIUM 8.9 mg/dL (8.4-10.2); CREATININE, serum 1.05 mg/dL (0.57-1.11); POTASSIUM 3.4 mmol/L (3.5-4.5); TOTAL PROTEIN 6.9 gm/dL (6.2-8.1)
[2023-03-22 10:03] LABS: TROPONIN-I 0.011 ng/mL (0.00-0.033)
[2023-03-22] MEDS ORDERED: ZITHROMAX Z PA250 MG PO (10:18)
[2023-03-22] MEDS ORDERED: AMOXICILLIN 8751 TAB PO (10:18)
[2023-03-22 12:25] VITALS: BP 110/46; PULSE 64; TEMP 98.4
== END 2023-03-22 12:25 | disposition home or self-care (01) ==
LOC: COL.ER 08:46
PROVIDERS: Emergency Medicine
DX: J44.0 Chronic obstructive pulmonary disease with (acute) lower respiratory infection (principal); J18.9 Pneumonia, unspecified organism; J96.11 Chronic respiratory failure with hypoxia; Z99.81 Dependence on supplemental oxygen; Z86.74 Personal history of sudden cardiac arrest; Z20.822 Contact with and (suspected) exposure to COVID-19
CPT/HCPCS: J0456; J0696; J7030; J7050

== ENCOUNTER 2023-08-23 12:53 | Emergency (ER) | payer OTHER, MEDICARE ==
[~2023-08-23] VITALS: Ht 157.5 cm; Wt 79.5 kg
[~2023-08-23 12:53] MED LIST changes: +AMOXICILLIN 8751 TAB PO; +CARDIZEM CD360 MG PO; +LANOXIN 0.120.125 MG PO; +LEVOXYL0.088 MG PO; +PRILOSEC 20MG20 MG PO; -PRILOTC; +TENORMIN 2525 MG/TAB PO; +ZITHROMAX Z PA250 MG PO
[2023-08-23 13:01] VITALS: TEMP 98.9
[2023-08-23 13:51] LABS: BASO # 0.1 K/mm3 (0.0-0.2); BASO % 0.3 % (0.0-2.0); EOS # 0.1 K/mm3 (0.0-0.7); EOS % 0.8 % (0.0-4.0); GRAN # 14.4 K/mm3 (1.4-6.5); GRAN % 87.3 % (42.2-75.2); HEMOGLOBIN 10.5 g/dl (12.5-16.0); LYMPH # 1.1 K/mm3 (1.2-3.4); LYMPH % 6.7 % (20.0-51.0); MEAN CELL VOLUME 89 fl (80.0-100.0); MEAN CORPUSCULAR HEMOGLOBIN 27 pg (27-31); MEAN CORPUSCULAR HGB CONC 31 g/dl (33.0-37.0); MEAN PLATELET VOLUME 9.8 fl (7.4-10.4); MONO # 0.7 K/mm3 (0.1-0.6); MONO % 3.9 % (1.7-9.3); PLATELET COUNT 371 K/mm3 (130-400); RED BLOOD COUNT 3.83 M/mm3 (4.10-5.30); REDCELL DISTRIBUTION WIDTH-CV 15.7 % (11.5-14.5)
[2023-08-23 13:52] LABS: HEMATOCRIT 33.9 % (37.0-47.0)
[2023-08-23 14:09] LABS: ALANINE AMINOTRANSFERASE 7 U/L (0-55); ALBUMIN 3.1 gm/dL (3.4-4.8); ALKALINE PHOSPHATASE 117 U/L (40-150); ANION GAP 16 mmol/L (7-16); AST,SGOT 9 U/L (5-34); BILIRUBIN,TOTAL 0.6 mg/dL (0.2-1.2); BLOOD UREA NITROGEN 13 mg/dL (10-20); CALCIUM 7.5 mg/dL (8.4-10.2); CARBON DIOXIDE 26 mmol/L (23-31); CHLORIDE 99 mmol/L (98-107); CREATININE, serum 1.39 mg/dL (0.57-1.11); GLUCOSE 122 mg/dL (70-99); MAGNESIUM 1.5 mg/dL (1.6-2.6); POTASSIUM 3.1 mmol/L (3.5-4.5); SODIUM 141 mmol/L (136-145); TOTAL PROTEIN 6.9 gm/dL (6.2-8.1)
[2023-08-23 14:16] LABS: TROPONIN-I < 0.010 ng/mL (0.00-0.033)
[2023-08-23 14:41] LABS: COLLECTION METHOD CLEAN CATCH
[2023-08-23 15:03] LABS: MUCOUS Present (NOT PRESENT); SQUAMOUS EPITHELIAL 0-2 /hpf (0-10); URINE APPEARANCE Clear (CLEAR/HAZY); URINE BLOOD TRACE-INTACT (NEGATIVE); URINE COLOR Yellow (YELLOW); URINE GLUCOSE Negative (NEGATIVE); URINE KETONE Negative (NEGATIVE); URINE NITRATE Negative (NEGATIVE); URINE PROTEIN(semi-quant) 1+ (NEGATIVE); URINE UROBILINOGEN 0.2 E.U/dL (0.2-1.0)
[2023-08-23 16:49] VITALS: BP 122/58; PULSE 71
== END 2023-08-23 16:55 | disposition home or self-care (01) ==
LOC: COL.ER 12:53
PROVIDERS: Emergency Medicine
DX: R06.02 Shortness of breath (principal); R65.10 Systemic inflammatory response syndrome (SIRS) of non-infectious origin without acute organ dysfunction; N17.9 Acute kidney failure, unspecified; Z99.81 Dependence on supplemental oxygen; Z87.09 Personal history of other diseases of the respiratory system
CPT/HCPCS: J0696; J3475; J7030; Q9967

== ENCOUNTER 2023-12-13 14:52 | Emergency (ER) | payer OTHER, MEDICARE ==
[~2023-12-13] VITALS: Ht 157.5 cm; Wt 80.9 kg
[2023-12-13 15:00] VITALS: TEMP 99
[2023-12-13] MEDS ORDERED: dexAMETHasone 10 MG/ML VIAL IV ONE (15:45)
[2023-12-13] MEDS ORDERED: Albuterol/Ipratropium 3 MG-0.5 MG/3 ML Neb Soln IH SCH (15:45)
[2023-12-13 16:11] LABS: BASO # 0.1 K/mm3 (0.0-0.2); BASO % 0.5 % (0.0-2.0); EOS # 0.2 K/mm3 (0.0-0.7); EOS % 1.2 % (0.0-4.0); GRAN # 12.5 K/mm3 (1.4-6.5); LYMPH # 1.2 K/mm3 (1.2-3.4); LYMPH % 7.8 % (20.0-51.0); MEAN CELL VOLUME 81 fl (80.0-100.0); MEAN CORPUSCULAR HGB CONC 29 g/dl (33.0-37.0); MEAN PLATELET VOLUME 9.4 fl (7.4-10.4); MONO # 0.7 K/mm3 (0.1-0.6); PLATELET COUNT 461 K/mm3 (130-400); RED BLOOD COUNT 3.62 M/mm3 (4.10-5.30); REDCELL DISTRIBUTION WIDTH-CV 16.4 % (11.5-14.5)
[2023-12-13 16:14] LABS: HEMATOCRIT 29.4 % (37.0-47.0); HEMOGLOBIN 8.6 g/dl (12.5-16.0); MEAN CORPUSCULAR HEMOGLOBIN 24 pg (27-31)
[2023-12-13 16:31] LABS: ALANINE AMINOTRANSFERASE < 6 U/L (0-55); ALBUMIN 3.1 gm/dL (3.4-4.8); ALKALINE PHOSPHATASE 102 U/L (40-150); ANION GAP 11 mmol/L (7-16); AST,SGOT 7 U/L (5-34); BILIRUBIN,TOTAL 0.5 mg/dL (0.2-1.2); BLOOD UREA NITROGEN 10 mg/dL (10-20); CALCIUM 9.1 mg/dL (8.4-10.2); CARBON DIOXIDE 29 mmol/L (23-31); CHLORIDE 98 mmol/L (98-107); GLUCOSE 105 mg/dL (70-99); POTASSIUM 3.4 mmol/L (3.5-4.5); SODIUM 138 mmol/L (136-145); TOTAL PROTEIN 6.5 gm/dL (6.2-8.1)
[2023-12-13 16:38] LABS: TROPONIN-I 0.022 ng/mL (0.00-0.033)
[2023-12-13] MEDS ORDERED: DOXYCYCLINE 10100 MG PO (17:24)
[2023-12-13] MEDS ORDERED: PREDNISONE20 MG PO (17:25)
[2023-12-13] MEDS ORDERED: cefTRIAXone 1 G in Water For Injection,Sterile 10 ML IV ONE (17:30)
[2023-12-13 17:46] VITALS: BP 121/77; PULSE 92
== END 2023-12-13 17:51 | disposition home or self-care (01) ==
LOC: COL.ER 14:52
PROVIDERS: Physician Assistant
DX: J44.1 Chronic obstructive pulmonary disease with (acute) exacerbation (principal); J96.11 Chronic respiratory failure with hypoxia; J18.9 Pneumonia, unspecified organism; I51.7 Cardiomegaly; Z99.81 Dependence on supplemental oxygen; Z87.891 Personal history of nicotine dependence
CPT/HCPCS: J0696; J1100

== ENCOUNTER 2024-02-21 15:48 | Emergency (ER) | payer OTHER, MEDICARE ==
[~2024-02-21] VITALS: Ht 157.5 cm; Wt 76.4 kg
[2024-02-21 15:54] VITALS: TEMP 98.5
[2024-02-21 17:36] LABS: BASO # 0.1 K/mm3 (0.0-0.2); BASO % 0.6 % (0.0-2.0); EOS # 0.3 K/mm3 (0.0-0.7); EOS % 2.3 % (0.0-4.0); GRAN # 9.7 K/mm3 (1.4-6.5); GRAN % 76.6 % (42.2-75.2); LYMPH # 1.8 K/mm3 (1.2-3.4); LYMPH % 14.4 % (20.0-51.0); MEAN CELL VOLUME 83 fl (80.0-100.0); MEAN CORPUSCULAR HGB CONC 28 g/dl (33.0-37.0); MEAN PLATELET VOLUME 9.1 fl (7.4-10.4); MONO # 0.7 K/mm3 (0.1-0.6); MONO % 5.5 % (1.7-9.3); PLATELET COUNT 464 K/mm3 (130-400); RED BLOOD COUNT 3.62 M/mm3 (4.10-5.30); REDCELL DISTRIBUTION WIDTH-CV 18.1 % (11.5-14.5)
[2024-02-21 17:39] LABS: HEMATOCRIT 30.1 % (37.0-47.0); HEMOGLOBIN 8.4 g/dl (12.5-16.0); MEAN CORPUSCULAR HEMOGLOBIN 23 pg (27-31)
[2024-02-21 17:56] LABS: ALBUMIN 3.2 g/dL (3.4-4.8); ALKALINE PHOSPHATASE 92 U/L (40-150); ANION GAP 11 mmol/L (7-16); AST,SGOT 5 U/L (5-34); BILIRUBIN,TOTAL 0.3 mg/dL (0.2-1.2); BLOOD UREA NITROGEN 14 mg/dL (10-20); CALCIUM 7.6 mg/dL (8.4-10.2); CHLORIDE 105 mEq/L (98-107); CREATININE, serum 1.46 mg/dL (0.57-1.11); GLUCOSE 102 mg/dL (70-99); POTASSIUM 3.3 mEq/L (3.5-4.5); SODIUM 142 mEq/L (136-145); TOTAL PROTEIN 6.7 g/dl (6.2-8.1)
[2024-02-21 17:57] LABS: ALANINE AMINOTRANSFERASE < 6 U/L (0-55)
[2024-02-21] MEDS ORDERED: NS 100 ML IV SCH (18:28)
[2024-02-21] MEDS ORDERED: Iohexol 300 - 100 ML VIAL IV ONE (18:28)
[2024-02-21] MEDS ORDERED: AMOXICILLIN 8751 TAB PO (18:52)
[2024-02-21] MEDS ORDERED: Amoxicillin/Clavulanate K+ 875/125 MG TAB PO ONE (19:00)
[2024-02-21 19:11] VITALS: BP 110/54; PULSE 78
[2024-02-29] MEDS ORDERED: LEVOXYL0.1 MG PO (19:08)
[2024-02-29] MEDS ORDERED: DEMADEX 20MG20 M1 PO (21:55)
[2024-02-29] MEDS ORDERED: SINGULAIR 110 MG/TAB PO (21:57)
[2024-02-29] MEDS ORDERED: THEO-24400 MG PO (21:58)
[2024-03-01] MEDS ORDERED: PRIL40 PO (10:14)
== END 2024-02-21 19:26 | disposition home or self-care (01) ==
LOC: COL.ER 15:48
PROVIDERS: Physician Assistant
DX: K11.20 Sialoadenitis, unspecified (principal); E87.6 Hypokalemia
CPT/HCPCS: Q9967

== ENCOUNTER 2024-05-27 07:44 | Day surgery (SDC) | payer OTHER, MEDICARE ==
[~2024-05-27] VITALS: Ht 157.5 cm; Wt 75.3 kg
[~2024-05-27 07:44] MED LIST changes: +DEMADEX 20MG20 M1 PO; +LEVOXYL0.1 MG PO; +LR 1,000 ML IV SCH; +Ondansetron 4 MG/2 ML VIAL IV PRN; +PRIL40 PO
[2024-05-27] MEDS ORDERED: fentaNYL 50 MCG/ML 2 ML VIAL ONE (09:29)
[2024-05-27] MEDS ORDERED: Lidocaine PF 2% (20 MG/ML) 5 ML VIAL ONE (09:29)
[2024-05-27 10:40] VITALS: BP 111/90; PULSE 74; TEMP 97.1
[2024-05-27 10:55] VITALS: BP 111/73; PULSE 72
[2024-05-27 11:05] VITALS: BP 113/79; PULSE 68
--- NOTE | 2024-05-27 11:10 | NUR ---
1040 RETURNS TO ROOM 8 PER CART. AWAKE, ALERT, AMBULATES TO RECLINER WITH STANDBY ASSIST. O2 PER N/C AT HOME. DENIES NAUSEA, DISCOMFORT OR DYSPHAGIA. VITAL SIGNS OBTAINED. CALL LIGHT AT SIDE. 1047 TOLERATES PO SODA. DISCHARGE INSTRUCTIONS REVIEWED PATIENT VERBALIZES UNDERSTANDING. COPY PROVIDED IN DISCHARGE FOLDER [address] DR LYMAN HERE TO VISIT WITH PATIENT
[2024-05-27 12:47] VITALS: BP 1/73; PULSE 84; TEMP 97.2
[2024-05-27] MEDS ORDERED: VITAMIN D 50,1.25 MG PO (13:57)
== END 2024-05-27 11:10 | disposition home or self-care (01) ==
LOC: SDCO 07:44
DX: D12.2 Benign neoplasm of ascending colon (principal); D12.5 Benign neoplasm of sigmoid colon; B37.81 Candidal esophagitis; K63.5 Polyp of colon; K57.30 Diverticulosis of large intestine without perforation or abscess without bleeding; D50.9 Iron deficiency anemia, unspecified; G47.33 Obstructive sleep apnea (adult) (pediatric); I48.91 Unspecified atrial fibrillation; J44.9 Chronic obstructive pulmonary disease, unspecified; Z99.89 Dependence on other enabling machines and devices; Z86.73 Personal history of transient ischemic attack (TIA), and cerebral infarction without residual deficits; Z95.5 Presence of coronary angioplasty implant and graft; Z79.82 Long term (current) use of aspirin; Z95.818 Presence of other cardiac implants and grafts; Z91.199 Patient's noncompliance with other medical treatment and regimen due to unspecified reason
CPT/HCPCS: J2704; J3010